=== PATIENT | male | born 1985 | race Caucasian/White ===

== ENCOUNTER 2019-09-13 09:50 | Inpatient (IN) | payer MEDICAID, OTHER ==
--- NOTE | 2019-09-13 10:38 | ED ---
Psych HPI - General Source: patient, police, EMS Mode of arrival: ambulatory <Opal Leo - Last Filed: 09/13/19 14:56> <Papa West - Last Filed: 09/13/19 15:10> - General Chief Complaint: Psychiatric Symptoms Stated Complaint: Mental Health Time Seen by Provider: 09/13/19 10:22 - History of Present Illness Initial Comments: 33-year-old male who states he has previous psychiatric history who is currently off all medications presenting for anxiety. Patient was brought in by state police were called to a [place] station stating patient was acting bizzare and paranoid. Patient states that he has been feeling paranoid he states his thoughts are racing. He states he voluntarily came to the emergency department is agreeable to evaluation and possible admission. Patient denies any suicidal or homicidal ideation. Patient denies any physical complaints. Upon arrival patient appears well no distress, very compliant. (Opal Leo) - Related Data Home Medications Medication Instructions Recorded Confirmed No Known Home Medications 09/13/19 09/13/19 Allergies Allergy/AdvReac Type Severity Reaction Status Date / Time No Known Allergies Allergy Verified 09/13/19 11:29 Review of Systems ROS Other: All systems not noted in ROS Statement are negative. <Opal Leo - Last Filed: 09/13/19 14:56> ROS Other: All systems not noted in ROS Statement are negative. <Papa West - Last Filed: 09/13/19 15:10> ROS Statement: Those systems with pertinent positive or pertinent negative responses have been documented in the HPI. Past Medical History Past Medical History: No Reported History History of Any Multi-Drug Resistant Organisms: None Reported Past Surgical History: No Surgical Hx Reported Past Psychological History: PTSD Smoking Status: Never smoker Past Alcohol Use History: Occasional Past Drug Use History: None Reported <Opal Leo - Last Filed: 09/13/19 14:56> General Exam Limitations: no limitations <Opal Leo - Last Filed: 09/13/19 14:56> - General Exam Comments Initial Comments: General: The patient is awake and alert, in no distress Eye: Pupils are equal, round and reactive to light, extra-ocular movements are intact. No nystagmus. There is normal conjunctiva bilaterally. No signs of icterus. Ears, nose, mouth and throat: There are moist mucous membranes and no oral lesions. Neck: There is no tenderness or JVD. Cardiovascular: There is a regular rate and rhythm. No murmur, rub or gallop is appreciated. Respiratory: Lungs are clear to auscultation, respirations are non-labored, breath sounds are equal. No wheezes, stridor, rales, or rhonchi. Gastrointestinal: Soft, non-distended, non-tender abdomen without masses or organomegaly noted. There is no rebound or guarding present. Musculoskeletal: Normal ROM, no tenderness. Strength 5/5. Sensation intact. Radial pulses equal bilaterally 2+. Neurological: A&O x 3. CN II-XII intact grossly, There are no obvious motor or sensory deficits. Coordination appears grossly intact. Speech is normal. Skin: Skin is warm and dry and no rashes or lesions are noted. Psychiatric: Cooperative, flat affect ([place]a Leo) Course <Opal Leo - Last Filed: 09/13/19 14:56> <Papa West - Last Filed: 09/13/19 15:10> Vital Signs 09/13/19 09:55 Temperature 98.9 F Pulse Rate 83 Respiratory 18 Rate Blood Pressure 135/88 O2 Sat by Pulse 97 Oximetry - Reevaluation(s) Reevaluation #1: Notified EPS personally that patient was medically cleared for EPS evaluation. 09/13/19 11:24 (Opal Leo) Reevaluation #2: Patient has episode of attempting to elope, medications ordered by certifying physician Dr. West 09/13/19 (Opal Leo) Reevaluation #3: 09/13/19 15:10 I did personally evaluate the patient he does demonstrate evidence of acute psychosis with paranoid features. He is uncooperative with respect to signing in. He was here in petition I did review the petition. I will fill out a clinical certification. Also the patient did attempt to climb through the ceiling in the bathroom adjacent to his room staff was able to stop his activity. (Papa West) Disposition Is patient prescribed a controlled substance at d/c from ED?: No Time of Disposition: 14:08 Decision to Admit Reason: Admit from EC Decision Date: 09/13/19 Decision Time: 14:08 <Opal Leo - Last Filed: 09/13/19 14:56> <Papa West - Last Filed: 09/13/19 15:10> Clinical Impression: Paranoid ideation, Anxiety, Acute psychosis Disposition: TRANSFER TO PSYCH HOSP/UNIT Condition: Stable Referrals: Nonstaff,Physician [REFERRING] - 1-2 days
[2019-09-13] MEDS ORDERED: ZIPRASIDONE 20 MG VIAL IM STA ×2 (14:23→19:24)
[2019-09-13] MEDS ORDERED: LORazepam 2 MG/ML INJ IM STA ×2 (14:23→19:23)
--- NOTE | 2019-09-13 15:21 | ED ---
Disposition Clinical Impression: Paranoid ideation, Anxiety, Acute psychosis Disposition: TRANSFER TO PSYCH HOSP/UNIT Condition: Stable Referrals: Nonstaff,Physician [REFERRING] - 1-2 days Procedures - Restraint - Face to Face Restraint Occurrence 1 Patient's Immediate Situation: Endangers self safety, Endangers others' safety Patient's Reaction to the Intervention: Cooperative, Fearful, Anxious, Bizarre, Suspicious, Combative Patient's Medical & Behavioral Condition: Awake, Alert, Anxious, Agitated, Paranoid, Flight of ideas, Bizarre behavior Need to Continue or Terminate Restraint or Seclusion: Continue Face to Face Eval of Restraint Date: 09/13/19 Face to Face Eval of Restraint Time: 15:15
[2019-09-13 19:09] LABS: Basophils # (A) 0.1 k/uL (0-0.2); Basophils % (A) 1 %; Eosinophils # (A) 0.1 k/uL (0-0.7); Eosinophils % (A) 1 %; HCT 45.4 % (39.0-53.0); HGB 16.3 gm/dL (13.0-17.5); Lymphocytes # (A) 2.9 k/uL (1.0-4.8); Lymphocytes % (A) 26 %; MCH 28.8 pg (25.0-35.0); Mean Platelet Volume 8.5; Monocytes # (A) 0.9 k/uL (0-1.0); Monocytes % (A) 8 %; Neutrophils # (A) 7.2 k/uL (1.3-7.7); Neutrophils % (A) 63 %; Platelet Count 169 k/uL (150-450); RBC 5.67 m/uL (4.30-5.90); RDW 13.3 % (11.5-15.5); WBC 11.5 k/uL (3.8-10.6)
[2019-09-13] MEDS ORDERED: diphenhydrAMINE 50 MG/ML 1 ML VIAL IM STA (19:24)
[2019-09-13 19:25] LABS: ALT 10 U/L (4-49); AST 22 U/L (17-59); African American GFR (CKD) >90 (>60 ml/min/1.73 sqM); Albumin 4.9 g/dL (3.5-5.0); Alkaline Phosphatase 84 U/L (38-126); Anion Gap 10 mmol/L; Blood Urea Nitrogen 15 mg/dL (9-20); Calcium 9.7 mg/dL (8.4-10.2); Carbon Dioxide 23 mmol/L (22-30); Chloride 108 mmol/L (98-107); Glucose 104 mg/dL (74-99); Non-African American GFR(CKD) >90 (>60 ml/min/1.73 sqM); Potassium 3.9 mmol/L (3.5-5.1); Sodium 141 mmol/L (137-145); Total Bilirubin 1.2 mg/dL (0.2-1.3); Total Protein 7.6 g/dL (6.3-8.2)
[2019-09-13] MEDS ORDERED: diphenhydrAMINE 50 MG CAP PO STA (19:28)
[2019-09-13] MEDS ORDERED: LORazepam 1 MG TAB PO STA (19:30)
[2019-09-14 02:50] LABS: Appearance,Urine Clear (Clear); Bilirubin,Urine Negative (Negative); Blood,Urine Negative (Negative); Color,Urine Yellow; Glucose,Urine (UA) Negative (Negative); Ketones,Urine 3+ (Negative); Leukocyte Esterase,Urine Negative (Negative); Mucus,Urine Occasional /hpf; Nitrite,Urine Negative (Negative); PH, Urine 6.5 (5.0-8.0); Protein,Urine 1+ (Negative); RBC,Urine 1 /hpf (0-5); WBC,Urine <1 /hpf (0-5)
[2019-09-14 03:01] LABS: Amphetamine Screen,Urine Not Detected (NotDetected); Barbiturate Screen,Urine Not Detected (NotDetected); Benzodiazepines Screen,Urine Detected (NotDetected); Cocaine Screen,Urine Not Detected (NotDetected); Methadone Screen, Urine Not Detected (NotDetected); Opiate Screen,Urine Not Detected (NotDetected); Oxycodone Screen, Urine Not Detected (NotDetected); Phencyclidine Screen,Urine Not Detected (NotDetected); Tricyclic Antidepressant,Urine Not Detected (NotDetected); Urn Cannabinoid Scrn Not Detected (NotDetected)
[2019-09-14] MEDS ORDERED: MAGNESIUM HYDROXIDE 2,400 MG/10 ML CUP PO PRN (09:00)
[2019-09-14] MEDS ORDERED: LORazepam 1 MG TAB PO PRN (09:00)
[2019-09-14] MEDS ORDERED: MAG HYDROX/AL HYDROX/SIMETH 30 ML CUP PO PRN (09:00)
[2019-09-14] MEDS ORDERED: ACETAMINOPHEN TAB 325 MG TAB PO PRN (09:00)
[2019-09-14] MEDS ORDERED: ZIPRASIDONE 20 MG VIAL IM PRN (09:00)
[2019-09-14] MEDS ORDERED: LORazepam 2 MG/ML INJ IM PRN (09:05)
[2019-09-14] MEDS ORDERED: traZODone HCL 50 MG TAB PO PRN (12:24)
[2019-09-14] MEDS: ARIPiprazole 5 MG TAB PO SCH (12:49)
--- NOTE | 2019-09-14 12:56 | P.HP ---
Psychiatric H&P - . H&P Date: 09/14/19 History & Physical: Allergies Allergy/AdvReac Type Severity Reaction Status Date / Time No Known Allergies Allergy Verified 09/14/19 09:14 Vital Signs Temp 97.7 F 09/14/19 09:32 Pulse 98 09/14/19 09:32 Resp 20 09/14/19 09:32 BP 122/91 09/14/19 09:32 Pulse Ox 98 09/14/19 09:32 Intake & Output 09/13/19 09/14/19 09/14/19 18:59 06:59 18:59 Weight 74.843 kg 68.974 kg Laboratory Last Values WBC 11.5 k/uL (3.8-10.6) H 09/13/19 18:59 RBC 5.67 m/uL (4.30-5.90) 09/13/19 18:59 Hgb 16.3 gm/dL (13.0-17.5) 09/13/19 18:59 Hct 45.4 % (39.0-53.0) 09/13/19 18:59 MCV 80.0 fL (80.0-100.0) 09/13/19 18:59 MCH 28.8 pg (25.0-35.0) 09/13/19 18:59 MCHC 36.0 g/dL (31.0-37.0) 09/13/19 18:59 RDW 13.3 % (11.5-15.5) 09/13/19 18:59 Plt Count 169 k/uL (150-450) 09/13/19 18:59 Neutrophils % 63 % 09/13/19 18:59 Lymphocytes % 26 % 09/13/19 18:59 Monocytes % 8 % 09/13/19 18:59 Eosinophils % 1 % 09/13/19 18:59 Basophils % 1 % 09/13/19 18:59 Neutrophils # 7.2 k/uL (1.3-7.7) 09/13/19 18:59 Lymphocytes # 2.9 k/uL (1.0-4.8) 09/13/19 18:59 Monocytes # 0.9 k/uL (0-1.0) 09/13/19 18:59 Eosinophils # 0.1 k/uL (0-0.7) 09/13/19 18:59 Basophils # 0.1 k/uL (0-0.2) 09/13/19 18:59 Sodium 141 mmol/L (137-145) 09/13/19 18:59 Potassium 3.9 mmol/L (3.5-5.1) 09/13/19 18:59 Chloride 108 mmol/L (98-107) H 09/13/19 18:59 Carbon Dioxide 23 mmol/L (22-30) 09/13/19 18:59 Anion Gap 10 mmol/L 09/13/19 18:59 BUN 15 mg/dL (9-20) 09/13/19 18:59 Creatinine 0.89 mg/dL (0.66-1.25) 09/13/19 18:59 Est GFR (CKD-EPI)AfAm >90 (>60 ml/min/1.73 sqM) 09/13/19 18:59 Est GFR (CKD-EPI)NonAf >90 (>60 ml/min/1.73 sqM) 09/13/19 18:59 Glucose 104 mg/dL (74-99) H 09/13/19 18:59 Calcium 9.7 mg/dL (8.4-10.2) 09/13/19 18:59 Total Bilirubin 1.2 mg/dL (0.2-1.3) 09/13/19 18:59 AST 22 U/L (17-59) 09/13/19 18:59 ALT 10 U/L (4-49) 09/13/19 18:59 Alkaline Phosphatase 84 U/L (38-126) 09/13/19 18:59 Total Protein 7.6 g/dL (6.3-8.2) 09/13/19 18:59 Albumin 4.9 g/dL (3.5-5.0) 09/13/19 18:59 Urine Color Yellow 09/14/19 02:45 Urine Appearance Clear (Clear) 09/14/19 02:45 Urine pH 6.5 (5.0-8.0) 09/14/19 02:45 Ur Specific Tilly 1.030 (1.001-1.035) 09/14/19 02:45 Urine Protein 1+ (Negative) H 09/14/19 02:45 Urine Glucose (UA) Negative (Negative) 09/14/19 02:45 Urine Ketones 3+ (Negative) H 09/14/19 02:45 Urine Blood Negative (Negative) 09/14/19 02:45 Urine Nitrite Negative (Negative) 09/14/19 02:45 Urine Bilirubin Negative (Negative) 09/14/19 02:45 Urine Urobilinogen 2.0 mg/dL (<2.0) 09/14/19 02:45 Ur Leukocyte Esterase Negative (Negative) 09/14/19 02:45 Urine RBC 1 /hpf (0-5) 09/14/19 02:45 Urine WBC <1 /hpf (0-5) 09/14/19 02:45 Urine Mucus Occasional /hpf (None) H 09/14/19 02:45 Urine Opiates Screen Not Detected (NotDetected) 09/14/19 02:45 Ur Oxycodone Screen Not Detected (NotDetected) 09/14/19 02:45 Urine Methadone Screen Not Detected (NotDetected) 09/14/19 02:45 Ur Propoxyphene Screen Not Detected (NotDetected) 09/14/19 02:45 Ur Barbiturates Screen Not Detected (NotDetected) 09/14/19 02:45 U Tricyclic Antidepress Not Detected (NotDetected) 09/14/19 02:45 Ur Phencyclidine Scrn Not Detected (NotDetected) 09/14/19 02:45 Ur Amphetamines Screen Not Detected (NotDetected) 09/14/19 02:45 U Methamphetamines Scrn Not Detected (NotDetected) 09/14/19 02:45 U Benzodiazepines Scrn Detected (NotDetected) H 09/14/19 02:45 Urine Cocaine Screen Not Detected (NotDetected) 09/14/19 02:45 U Marijuana (THC) Screen Not Detected (NotDetected) 09/14/19 02:45 09/14/19 12:48 IDENTIFYING DATA: Patient is a 33-year-old male who currently lives with his parents in a house is unemployed and does not have any kids and is single. HPI: Patient presented to the hospital yesterday accompanied by police after patient was allegedly picked up at a gas station as he was acting bizarre and paranoid. Patient endorsed having racing thoughts in the ER and claimed that he stopped taking his medications several months ago and was reporting significant anxiety. Patient apparently tried to escape out of the ER and try to climb through ceiling tiles. Patient's UDS is positive for benzodiazepines. Patient did receive prn medications while he was in the ER before being transferred to the mental health unit. Patient is on a petition and certification. Patient appeared to be anxious and suspicious/paranoid with global technical writer when he was initially approached. Patient asked that global technical writer close the door and asked several times if he is going to be okay on the unit and no is going to hurt him. Patient endorsed scared of "the whole world" and spoke about riots and "hatefulness" around him. He was fairly bizarre during the interview. He endorsed anxiety and states that it's been tough being around other people. He states that his mood is fine. He states that he's been dealing with anxiety since his early 20s. He claims that he has had poor sleep approximately 2-3 hours a night which started since he is moved to [place] from [place]. He denied any other recreational drug use. Patient denies any suicidal or homicidal ideations intent or plan. At this time patient denies any auditory or visual hallucinations. PAST PSYCHIATRIC HISTORY: Patient states that he has a history of anxiety/PTSD. Patient states that he was previously on psychiatric medications however did not know the name. He did recall being on lithium in the past. He states that he was previously hospitalized in a psychiatric hospital in [place] earlier this year. He states that he previously was following up with a psychiatrist in [place] however moved to [place] in March and has not seen a psychiatrist since then. Patient denies any history of suicide attempts in the past. PMH:denies ALLERGIES: as per EMR CHEMICAL DEPENDENCY HISTORY: as per HPI FAMILY PSYCHIATRIC/SUBSTANCE USE HISTORY: denies SOCIAL HISTORY: Patient was born and raised in [facility] [place] He claims that he moved down to [place] for a brief period of time and recently moved back to [place] in March 2019. He states that he completed high school. He denies having any kids is single and is unemployed and lives with his parents and house. He denied any legal problems or history. MENTAL STATUS EXAM: General Appearance: Patient appears to be stated age is alert, appears to be anxious yet attempts to cooperate. Patient is significantly paranoid/suspicious of others.. Patient appears to have poor hygiene and grooming. Behavior: Patient is seated without any agitated behavior. Paranoid/suspicious. Speech: Patient's speech is fluent and nonpressured. Mood/Affect: Patient reports their mood is "OK" and admits to anxiety, affect is congruent and appears to be anxious. Suicidality/Homicidality: Patient denies having any homicidal ideation intent or plan. Denies any suicidal ideations intent or plan Perceptions: Patient denies any visual hallucinations and denies any auditory hallucinations Though content/process: Suspicious/paranoid, ILlogical at times. [place]. Memory and concentration: AOX3, grossly intact for the purposes of this session. Can spell "WORLD" backwards Judgment and insight: poor STRENGTHS/WEAKNESSES: strength is that patient is resilient. Weakness is that patient has poor judgment INTELLECT: average IMPRESSIONS: Psychosis unspecified Generalized anxiety disorder PLAN: -Patient is admitted under involuntary status to MHU for stabilization of psychiatric symptoms and safety. Patient signed medication consent and is placed in patient's chart. A second certification was completed and along with petition will be filed for court. -Medications : Will start patient on Abilify 5 mg daily for mood stabilization/psychosis, we'll also start trazodone 50 mg daily at bedtime when necessary for insomnia/mood. -Ativan and Geodon PRN for agitation/aggression -Patient was informed of the risks, benefits and side effects of the medication and patient verbally consented to taking the medications. Patient signed med consent form and was placed in chart. -Internal Medicine consult to perform medical evaluation and physical. -NRT - not needed as patient does not smoke. -SW on board for discharge planning. Encourage patient to participate in groups to work on coping skills. 09/14/19 12:55
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
[2019-09-15] MEDS: ARIPiprazole 5 MG TAB PO SCH (08:59)
--- NOTE | 2019-09-15 11:20 | P.PN ---
Progress Note - Text Progress Note Date: 09/15/19 Interval History: Patient was seen wandering the hallways and was directable and agreeable to sp roulak with signwriter in the office. patient appeared to be calmer today and appeared to be less anxious and his affect. Patient claims that he feels the Abilify is helping with his paranoia and was initially endorsing feeling safe however later on in conversation patient asked signwriter "I'm going to live right?" And also asked if he can be transferred to a long-term psychiatric hospital. Patient states that his mood is gradually improving. He states that he slept well last night and has been going to groups. At this time patient denies any suicidal or homical ideations, intent or plan. Patient denies any auditory, visual hallucinations. Patient denies any side effects from the medications and has been compliant with meds. Mental Status Exam: General Appearance: Patient appears to be stated age is alert, appears to be anxious yet attempts to cooperate. improvement in paranoia. Patient appears to have poor hygiene and grooming. Behavior: Patient is seated without any agitated behavior. less Paranoid/suspicious. Speech: Patient's speech is fluent and nonpressured. Mood/Affect: Patient reports their mood is "Okay" and admits improvement in his anxiety, affect is congruent Suicidality/Homicidality: Patient denies having any homicidal ideation intent or plan. Denies any suicidal ideations intent or plan Perceptions: Patient denies any visual hallucinations and denies any auditory h allucinations Though content/process: Suspicious/paranoid, ILlogical at times. [place]. Memory and concentration: AOX3, grossly intact for the purposes of this session. Can spell "WORLD" backwards Judgment and insight: poor, mildly improving. Assessment Psychosis unspecified Generalized anxiety disorder Plan: -Patient continues to meet criteria for inpatient psychiatric admission for symptom stabilization and safety. Patient has signed adult voluntary form and medication consent and was placed in patient's chart. -Medications: increased Abilify to 7.5 mg daily for mood stabilization/psycho sis, continue with trazodone 50 mg daily at bedtime when necessary for insomnia/mood. -When necessary Ativan and Geodon for agitation/aggression. -NRT - not needed as patient does not smoke. -SW on board for discharge planning. Encouraged the patient to participate in milieu. likely discharge in 2-3 days.
[2019-09-15 13:27] VITALS: BMI 21.8
[2019-09-16 08:17] VITALS: BP 129/79; PULSE 103; RESP 20
[2019-09-16] MEDS ORDERED: ARIPiprazole 5 MG TAB PO SCH (09:00)
--- NOTE | 2019-09-16 09:47 | P.PN ---
Progress Note - Text Progress Note Date: 09/16/19 Interval History: Patient was seen laying down in his bed this morning and was directable and ag reeable to speak with filing writer in the office. patient appeared to be calmer today and appeared to be less anxious. Patient claims that the medication has been helping with his anxiety and he claims to feel less paranoid today however Patient continues to ask filing writer "is there a place I can go like this record can be safe". and his affect. He states that he went to 1 group yesterday and enjoyed it and states that he'll try to go to more groups today. He claims that he spoke with his parents yesterday as they came to visit him on the unit and he states that it went well. He states that he was able to sleep well last night and claimed that his mood and anxiety have been improving significantly. At this time patient denies any suicidal or homical ideations, intent or plan. Patient denies any auditory, visual hallucinations. Patient denies any side effects from the medications and has been compliant with meds. Mental Status Exam: General Appearance: Patient appears to be stated age is alert, appears less anxious today and attempts to cooperate. Patient appears to have improving hygiene and grooming. Behavior: Patient is seated without any agitated behavior. less Paranoid/suspicious today. Speech: Patient's speech is fluent and nonpressured. Mood/Affect: Patient reports their mood is "good" and admits improvement in his anxiety, affect is congruent Suicidality/Homicidality: Patient denies having any homicidal ideation intent or plan. Denies any suicidal ideations intent or plan Perceptions: Patient denies any visual hallucinations and denies any auditory hallucinations Though content/process: Suspicious/paranoid which has been improving, logical and goal oriented. [place]. Memory and concentration: AOX3, grossly intact for the purposes of this session. Can spell "WORLD" backwards Judgment and insight: mildly improving. Assessment Psychosis unspecified Generalized anxiety disorder Plan: -Patient continues to meet criteria for inpatient psychiatric admission for symptom stabilization and safety. Awaiting for patient's deferral scheduled for today and full court hearing scheduled on 09/22/2019. -Medications: Increased Abilify to 10 mg daily for mood stabilization/psychosis, continue with trazodone 50 mg daily at bedtime when necessary for insomnia/mood. -When necessary Ativan and Geodon for agitation/aggression. -NRT - not needed as patient does not smoke. -SW on board for discharge planning. Encouraged the patient to participate in milieu. casino worker to make contact with patient's parents to assess for baseline and likely prepare for discharge tomorrow or early next week. Awaiting patient's deferral.
[2019-09-16 19:20] VITALS: TEMP 98.6
[2019-09-17] MEDS ORDERED: ARIPiprazole 10 MG TAB PO SCH (09:00)
--- NOTE | 2019-09-17 09:33 | P.DS ---
Providers Date of admission: 09/14/19 07:59 Expected date of discharge: 09/17/19 Attending physician: Andrew Seaman MD Consults: 09/14/19 09:00 Consult Physician Routine Consulting Provider: Tiffani Hoover Consult Reason/Comments: H & P and medical management Do you want consulting provider notified?: Yes Primary care physician: Jr Hawkins - Discharge Diagnosis(es) (1) Unspecified psychosis Current Visit: Yes Status: Acute Priority: High (2) Generalized anxiety disorder Current Visit: Yes Status: Acute Priority: Medium Hospital Course: Admission HPI: Patient is a 33-year-old male who currently lives with his parents in a house is unemployed and does not have any kids and is single. Patient presented to the hospital yesterday accompanied by police after patient was allegedly picked up at a gas station as he was acting bizarre and paranoid. Patient endorsed having racing thoughts in the ER and claimed that he stopped taking his medications several months ago and was reporting significant anxiety. Patient apparently tried to escape out of the ER and try to climb through ceiling tiles. Patient's UDS is positive for benzodiazepines. Patient did receive prn medications while he was in the ER before being transferred to the mental health unit. Patient is on a petition and certification. Patient appeared to be anxious and suspicious/paranoid with board writer when he was initially approached. Patient asked that board writer close the door and asked several times if he is going to be okay on the unit and no is going to hurt him. Patient en dorsed scared of "the whole world" and spoke about riots and "hatefulness" around him. He was fairly bizarre during the interview. He endorsed anxiety and states that it's been tough being around other people. He states that his mood is fine. He states that he's been dealing with anxiety since his early 20s. He claims that he has had poor sleep approximately 2-3 hours a night which started since he is moved to [place] from [place]. He denied any other recreational drug use. Patient denies any suicidal or homicidal ideations intent or plan. At this time patient denies any auditory or visual hallucinations. Hospital course: Upon admission to the unit patient was initially anxious, paranoid and bizarre. Patient was brought in on a petition and certificate and a second certificate was filed with the court and patient ended up deferring court and agreeable to continue on with psychiatric treatment on the unit. Patient was initially fairly paranoid and isolative however with treatment and over time patient got along well with other patients on the unit and followed unit protocol. Patient was compliant with the medications and denied any side effects throughout hospital course. Patient was started on Abilify and titrated up to a dose of 10 mg daily by mouth for mood stabilization/psychosis. Patient spoke of his stressors and engaged in therapy both group and individual. Patient was also seen by medical team for history and physical exam. Throughout the course of the hospitalization patient gradually improved with regards to paranoia/psychosis and anxiety, sleep and became future oriented with improved insight and judgment. On the day of discharge patient denied any suicidal or homicidal ideations intent or plan denied any auditory or visual hallucinations. Patient endorsed wanting to live for his future and his family. The patient denied any access to guns or weapons. Patient denied any paranoia and did not endorse any delusions. Patient does not have a significant history of substance abuse however was counseled on abstaining from all substances including alcohol and marijuana. Patient was also counseled on the medications and need for regular compliance and was encouraged to follow-up with their outpatient appointment for mental health and also for primary care. Prior to discharge a family meeting will be arranged by social security benefits interviewer to answer any questions and ensure safety upon discharge. Mental status exam: General Appearance: Patient appears to be tall and thin, stated age is alert, pleasant, and cooperative. Patient is in no acute distress and has fair hygiene and grooming Behavior: Patient is calmly seated without any agitated behavior. Speech: Patient's speech is fluent and nonpressured. Mood/Affect: Patient reports their mood is "much better", affect is congruent and euthymic. Suicidality/Homicidality: Patient denies having any suicidal or homicidal ideation intent or plan. Perceptions: Patient denies any auditory or visual hallucinations. Though content/process: There is no evidence of any delusional thought content and thought process is linear and goal-directed. more future oriented Memory and concentration: AOX3, grossly intact for the purposes of this session. Can spell "WORLD" backwards correctly. Judgment and insight: Improved with guarded prognosis Impression: Psychosis unspecified Generalized anxiety disorder Plan: -Continue with discharge today as patient has improved and stabilized psychiatrically and is not currently an imminent threat to himself and/or others. -Continue medications: Abilify by mouth 10 mg daily for mood stabilization/psychosis. -Patient was counseled on the need for medication compliance and appropriate follow-up at mental health and also primary care for medical issues. Patient verbalized understanding and agreed. -Social work to arrange for and conduct family meeting to ensure safety upon discharge and answer any questions/concerns. Social work also to arrange for patients follow up appointments for psychiatric care along with follow up with primary care provider. -Patient counseled on abstaining from recreational drugs and marijuana and alcohol. Was informed/educated on the adverse effects on their physical and mental health. Patient verbally agreed and understood. -Patient was instructed to return to the hospital or seek immediate medical care if their psychiatric or medical symptoms do worsen or reoccur. Allergies Allergy/AdvReac Type Severity Reaction Status Date / Time No Known Allergies Allergy Verified 09/14/19 09:14 Laboratory Results WBC 11.5 k/uL (3.8-10.6) H 09/13/19 18:59 RBC 5.67 m/uL (4.30-5.90) 09/13/19 18:59 Hgb 16.3 gm/dL (13.0-17.5) 09/13/19 18:59 Hct 45.4 % (39.0-53.0) 09/13/19 18:59 MCV 80.0 fL (80.0-100.0) 09/13/19 18:59 MCH 28.8 pg (25.0-35.0) 09/13/19 18:59 MCHC 36.0 g/dL (31.0-37.0) 09/13/19 18:59 RDW 13.3 % (11.5-15.5) 09/13/19 18:59 Plt Count 169 k/uL (150-450) 09/13/19 18:59 Neutrophils % 63 % 09/13/19 18:59 Lymphocytes % 26 % 09/13/19 18:59 Monocytes % 8 % 09/13/19 18:59 Eosinophils % 1 % 09/13/19 18:59 Basophils % 1 % 09/13/19 18:59 Neutrophils # 7.2 k/uL (1.3-7.7) 09/13/19 18:59 Lymphocytes # 2.9 k/uL (1.0-4.8) 09/13/19 18:59 Monocytes # 0.9 k/uL (0-1.0) 09/13/19 18:59 Eosinophils # 0.1 k/uL (0-0.7) 09/13/19 18:59 Basophils # 0.1 k/uL (0-0.2) 09/13/19 18:59 Sodium 141 mmol/L (137-145) 09/13/19 18:59 Potassium 3.9 mmol/L (3.5-5.1) 09/13/19 18:59 Chloride 108 mmol/L (98-107) H 09/13/19 18:59 Carbon Dioxide 23 mmol/L (22-30) 09/13/19 18:59 Anion Gap 10 mmol/L 09/13/19 18:59 BUN 15 mg/dL (9-20) 09/13/19 18:59 Creatinine 0.89 mg/dL (0.66-1.25) 09/13/19 18:59 Est GFR (CKD-EPI)AfAm >90 (>60 ml/min/1.73 sqM) 09/13/19 18:59 Est GFR (CKD-EPI)NonAf >90 (>60 ml/min/1.73 sqM) 09/13/19 18:59 Glucose 104 mg/dL (74-99) H 09/13/19 18:59 Calcium 9.7 mg/dL (8.4-10.2) 09/13/19 18:59 Total Bilirubin 1.2 mg/dL (0.2-1.3) 09/13/19 18:59 AST 22 U/L (17-59) 09/13/19 18:59 ALT 10 U/L (4-49) 09/13/19 18:59 Alkaline Phosphatase 84 U/L (38-126) 09/13/19 18:59 Total Protein 7.6 g/dL (6.3-8.2) 09/13/19 18:59 Albumin 4.9 g/dL (3.5-5.0) 09/13/19 18:59 TSH 1.190 mIU/L (0.465-4.680) 09/13/19 18:59 Urine Color Yellow 09/14/19 02:45 Urine Appearance Clear (Clear) 09/14/19 02:45 Urine pH 6.5 (5.0-8.0) 09/14/19 02:45 Ur Specific Lynch 1.030 (1.001-1.035) 09/14/19 02:45 Urine Protein 1+ (Negative) H 09/14/19 02:45 Urine Glucose (UA) Negative (Negative) 09/14/19 02:45 Urine Ketones 3+ (Negative) H 09/14/19 02:45 Urine Blood Negative (Negative) 09/14/19 02:45 Urine Nitrite Negative (Negative) 09/14/19 02:45 Urine Bilirubin Negative (Negative) 09/14/19 02:45 Urine Urobilinogen 2.0 mg/dL (<2.0) 09/14/19 02:45 Ur Leukocyte Esterase Negative (Negative) 09/14/19 02:45 Urine RBC 1 /hpf (0-5) 09/14/19 02:45 Urine WBC <1 /hpf (0-5) 09/14/19 02:45 Urine Mucus Occasional /hpf (None) H 09/14/19 02:45 Urine Opiates Screen Not Detected (NotDetected) 09/14/19 02:45 Ur Oxycodone Screen Not Detected (NotDetected) 09/14/19 02:45 Urine Methadone Screen Not Detected (NotDetected) 09/14/19 02:45 Ur Propoxyphene Screen Not Detected (NotDetected) 09/14/19 02:45 Ur Barbiturates Screen Not Detected (NotDetected) 09/14/19 02:45 U Tricyclic Antidepress Not Detected (NotDetected) 09/14/19 02:45 Ur Phencyclidine Scrn Not Detected (NotDetected) 09/14/19 02:45 Ur Amphetamines Screen Not Detected (NotDetected) 09/14/19 02:45 U Methamphetamines Scrn Not Detected (NotDetected) 09/14/19 02:45 U Benzodiazepines Scrn Detected (NotDetected) H 09/14/19 02:45 Urine Cocaine Screen Not Detected (NotDetected) 09/14/19 02:45 U Marijuana (THC) Screen Not Detected (NotDetected) 09/14/19 02:45 Coronavirus (PCR) Not Detected (Not Detected) 09/14/19 02:45 Vital Signs Temp 98.6 F 09/16/19 19:20 Pulse 103 H 09/16/19 08:15 Resp 20 09/16/19 08:15 BP 129/79 09/16/19 08:15 Pulse Ox 97 09/16/19 08:15 Patient Condition at Discharge: Stable Plan - Discharge Summary Discharge Rx Participant: No New Discharge Prescriptions: New ARIPiprazole [Abilify] 10 mg PO DAILY 30 Days tab Acetaminophen Tab [Tylenol] 650 mg PO Q4HR PRN tab PRN Reason: Pain/Discomfort Discharge Medication List ARIPiprazole [Abilify] 10 mg PO DAILY 30 Days tab 09/17/19 [Rx] Acetaminophen Tab [Tylenol] 650 mg PO Q4HR PRN tab 09/17/19 [Rx] Follow up Appointment(s)/Referral(s): Nonstaff,Physician [REFERRING] - 1-2 days Activity/Diet/Wound Care/Special Instructions: Activity and diet as tolerated. Avoid the use of street drugs and alcohol. Take all medications as prescribed. When you are in need of refills on your medications please contact your medical provider and/or outpatient psychiatrist to have this done. Please go to scheduled outpatient appointment for aftercare treatment. If symptoms return or become worse, call the crisis line at and/or go to the nearest emergency room for evaluation Discharge Disposition: HOME SELF-CARE
== END 2019-09-17 12:40 | disposition home or self-care (01) | DRG 885 ==
LOC: EC 09:50 → 3MHU 09-14 07:59 → UNDODISIN 09-14 09:52 → 3MHU 09-17 11:36
PROVIDERS: ADMIT Psychiatry & Neurology Psychiatry; ATTEND Psychiatry & Neurology Psychiatry
DX: F23 Brief psychotic disorder (principal); F60.0 Paranoid personality disorder; Z11.59 Encounter for screening for other viral diseases; F41.1 Generalized anxiety disorder; F43.10 Post-traumatic stress disorder, unspecified; G47.00 Insomnia, unspecified; Z56.0 Unemployment, unspecified
CPT/HCPCS: 36415; 80053; 80306; 81001; 82075; 84443; 85025; 96372; 99285

== ENCOUNTER 2019-09-25 00:14 | Emergency (ER) | payer OTHER ==
[2019-09-25 00:43] VITALS: BP 133/85; PULSE 116; RESP 18; TEMP 98.2
[2019-09-25] MEDS ORDERED: LORazepam 1 MG TAB PO STA (00:56)
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
== END 2019-09-25 02:03 | disposition home or self-care (01) ==
LOC: EC 00:14
DX: F41.0 Panic disorder [episodic paroxysmal anxiety] (principal); F41.9 Anxiety disorder, unspecified; F22 Delusional disorders
CPT/HCPCS: 99283

== ENCOUNTER 2019-09-25 03:17 | Inpatient (IN) | payer MEDICAID, OTHER ==
--- NOTE | 2019-09-25 03:49 | ED ---
Psych HPI - General Chief Complaint: Psychiatric Symptoms Stated Complaint: Mental Health Time Seen by Provider: 09/25/19 03:48 Source: patient, RN notes reviewed, old records reviewed Mode of arrival: ambulatory Limitations: no limitations - History of Present Illness Initial Comments: This is a 33-year-old male with known history of psychiatric illness coming in for psychiatric evaluation. Patient was seen earlier in the day decided not to stay in the hospital but then but again back with family for psychiatric admission and placement. Patient is racing thoughts paranoia and anxiety MD Complaint: suicidal ideation, feels depressed -: unknown Associated Psychiatric Symptoms: depression, suicidal ideation, racing thoughts History of same: Yes Quality: constant Improves With: none Worsens With: none Context: not taking psychiatric medications Associated Symptoms: denies other symptoms Treatments Prior to Arrival: placed on mental health hold If Self Harm: admits thoughts of self harm - Related Data Previous Rx's Medication Instructions Recorded ARIPiprazole [Abilify] 10 mg PO DAILY 30 Days tab 09/17/19 Acetaminophen Tab [Tylenol] 650 mg PO Q4HR PRN tab 09/17/19 LORazepam [Ativan] 0.5 mg PO BID 3 Days #6 tab 09/25/19 Allergies Allergy/AdvReac Type Severity Reaction Status Date / Time No Known Allergies Allergy Verified 09/25/19 03:33 Review of Systems ROS Statement: Those systems with pertinent positive or pertinent negative responses have been documented in the HPI. ROS Other: All systems not noted in ROS Statement are negative. Past Medical History Past Medical History: No Reported History History of Any Multi-Drug Resistant Organisms: None Reported Past Surgical History: No Surgical Hx Reported Past Anesthesia/Blood Transfusion Reactions: No Reported Reaction Past Psychological History: Anxiety, PTSD Smoking Status: Never smoker Past Alcohol Use History: None Reported Past Drug Use History: None Reported General Exam Limitations: no limitations General appearance: alert, in no apparent distress Head exam: Present: atraumatic, normocephalic, normal inspection Eye exam: Present: normal appearance, PERRL, EOMI. Absent: scleral icterus, conjunctival injection, periorbital swelling ENT exam: Present: normal exam, mucous membranes moist Neck exam: Present: normal inspection. Absent: tenderness, meningismus, lymphadenopathy Respiratory exam: Present: normal lung sounds bilaterally. Absent: respiratory distress, wheezes, rales, rhonchi, stridor Cardiovascular Exam: Present: regular rate, normal rhythm, normal heart sounds. Absent: systolic murmur, diastolic murmur, rubs, gallop, clicks GI/Abdominal exam: Present: soft, normal bowel sounds. Absent: distended, tenderness, guarding, rebound, rigid Extremities exam: Present: normal inspection, full ROM, normal capillary refill. Absent: tenderness, pedal edema, joint swelling, calf tenderness Back exam: Present: normal inspection Neurological exam: Present: alert, oriented X3, CN II-XII intact Psychiatric exam: Present: normal affect, normal mood Skin exam: Present: warm, dry, intact, normal color. Absent: rash Course Vital Signs 09/25/19 03:31 Temperature 98 F Pulse Rate 99 Respiratory 18 Rate Blood Pressure 118/78 O2 Sat by Pulse 99 Oximetry - Reevaluation(s) Reevaluation #1: 09/25/19 04:08 medical records reviewed Reevaluation #2: 09/25/19 04:08 Medical clear for psychiatric evaluation Medical Decision Making - Medical Decision Making 33 male who was seen in however psychiatry patient will be admitted for psychiatric evaluation and treatment Disposition Clinical Impression: Acute psychosis, Unspecified psychosis Disposition: TRANSFER TO PSYCH HOSP/UNIT Condition: Fair Is patient prescribed a controlled substance at d/c from ED?: No
[2019-09-25] MEDS ORDERED: ACETAMINOPHEN TAB 325 MG TAB PO PRN (04:52)
[2019-09-25] MEDS ORDERED: ZIPRASIDONE 20 MG VIAL IM PRN (04:52)
[2019-09-25] MEDS ORDERED: LORazepam 1 MG TAB PO PRN (04:52)
[2019-09-25] MEDS ORDERED: MAG HYDROX/AL HYDROX/SIMETH 30 ML CUP PO PRN (04:52)
[2019-09-25] MEDS ORDERED: MAGNESIUM HYDROXIDE 2,400 MG/10 ML CUP PO PRN (04:52)
[2019-09-25] MEDS ORDERED: LORazepam 2 MG/ML INJ IM PRN (04:55)
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
[2019-09-25 08:01] LABS: Glucose,Whole Blood 128 mg/dL (75-99)
[2019-09-25 08:08] LABS: ALT 10 U/L (4-49); AST 18 U/L (17-59); African American GFR (CKD) >90 (>60 ml/min/1.73 sqM); Albumin 4.9 g/dL (3.5-5.0); Alkaline Phosphatase 72 U/L (38-126); Anion Gap 11 mmol/L; Bilirubin,Unconjugated 1.4 mg/dL (0.0-1.1); Blood Urea Nitrogen 19 mg/dL (9-20); Calcium 9.5 mg/dL (8.4-10.2); Carbon Dioxide 27 mmol/L (22-30); Chloride 102 mmol/L (98-107); Cholesterol 180 mg/dL (<200); Glucose 97 mg/dL (74-99); HDL Cholesterol 29 mg/dL (40-60); LDL Cholesterol,Calculated 132 mg/dL (0-99); Non-African American GFR(CKD) >90 (>60 ml/min/1.73 sqM); Potassium 3.8 mmol/L (3.5-5.1); Sodium 140 mmol/L (137-145); Total Bilirubin 1.4 mg/dL (0.2-1.3); Total Protein 7.3 g/dL (6.3-8.2); Triglycerides 95 mg/dL (<150)
[2019-09-25] MEDS: ARIPiprazole 10 MG TAB PO SCH (08:30)
[2019-09-25 08:50] LABS: Basophils # (A) 0.1 k/uL (0-0.2); Basophils % (A) 1 %; Eosinophils # (A) 0.1 k/uL (0-0.7); Eosinophils % (A) 1 %; HGB 16.1 gm/dL (13.0-17.5); Lymphocytes # (A) 3.1 k/uL (1.0-4.8); Lymphocytes % (A) 34 %; MCH 27.9 pg (25.0-35.0); MCHC 34.3 g/dL (31.0-37.0); MCV 81.4 fL (80.0-100.0); Mean Platelet Volume 9.2; Monocytes # (A) 0.9 k/uL (0-1.0); Monocytes % (A) 9 %; Neutrophils # (A) 4.9 k/uL (1.3-7.7); Neutrophils % (A) 53 %; Platelet Count 191 k/uL (150-450); RBC 5.78 m/uL (4.30-5.90); RDW 13.4 % (11.5-15.5); WBC 9.4 k/uL (3.8-10.6)
--- NOTE | 2019-09-25 10:15 | P.HP ---
Psychiatric H&P - . H&P Date: 09/25/19 History & Physical: IDENTIFYING DATA: A 33-year-old single male readmitted to the psychiatric unit voluntarily with complaints of increasing anxiety and paranoia. HISTORY OF PRESENT ILLNESS: Dr. Seaman discharged him on 09/17/2019 with diagnoses of unspecified psychosis and generalized anxiety disorder. His discharge medications included Abilify 10 mg daily. The patient stated that he became increasingly anxious when he returned to his parent's home. He talked about developing a belief that people were watching him and trying to "get him." He believed that people were hiding in the [place] around his parents home. He then spent 2 or 3 days at his grandmother's house believing that anxiety and paranoia was due to living at his parent's home. However the anxiety and paranoia continued and worsened to the point where she became afraid to eat or drink fluids. He developed a belief that both the water and food were poisoned. He alleged that he has not eaten and only drank "a little bit" of water since his discharge. He perseverated on "my thoughts" telling me that there is poison in the water and food. In the EC he was markedly anxious and paranoid. His anxiety did not resolve with Ativan and he would not leave the EC with his parents. He told the EPS nurse that he was afraid that his father being physical with him and talked about being afraid people coming out of the [place], breaking into his parent's home, and being him out. He believes these people were driven byCOVID, the loss of their jobs and having nothing to eat. He was tearful, tremulous and sitting in a semi- position. He described feelings depression but denied thoughts of or suicide. He described insomnia with difficulty falling asleep and staying asleep. He described persistent and uncontrolled anxiety as well as periods of increased anxiety. The periods of increased anxiety where sustained and disproportionate to that of a panic attack. He was obsessive and perseverative but denied compulsive behaviors or specific obsessional thoughts. He described ideas reference related to the [place] around his parent's house and he talked about having special messages from the [place] plates, bumper stickers and words on cars and trucks. He denied experiencing auditory, visual or olfactory hallucinations. He does not describe clear thought insertion, thought broadcasting or thought control. PAST PSYCHIATRIC HISTORY: This is his fifth or sixth hospitalization and the second to this facility. His first admitted to a psychiatric facility when he was 16 years old. He talked about having been hospitalized for 2-1/2 pounds psychiatric facility in [place] in 2019. He alleged that he is compliant with Abilify 10 mg daily. He is active with [facility]. PAST MEDICAL HISTORY: Medical hesitation appreciated. He denied history of major medical problems. ALLERGIES: NO KNOWN DRUG ALLERGIES SUBSTANCE USE HISTORY:. He denied history of substance use and substance use problems. FAMILY PSYCHIATRIC/SUBSTANCE USE HISTORY: Denies LEGAL HISTORY: Denies SOCIAL HISTORY: He was born and raised in [place] to an intact family. He graduated from high school. He has held intermittent unskilled jobs. He lived briefly in [place] in 2019. No back to [place] in March of this year. He has no income. s MENTAL STATUS EXAM: He presented as a thin and anxious appearing 33-year-old male with male pattern balding. He made eye contact and attended to interview. He had no prominent physical abnormalities. He had a distressed facial expression. He was alert and oriented to person, place and time. He showed no abnormality of psychomotor activity. He was not restless or agitated. He wrung his hands throughout the interview. His speech was spontaneous with normal rate and rhythm. His affect is anxious but not inappropriate or attempts. He denies suicidal ideation or wishes. No homicidal ideation. Expresses feelings of hopelessness and helplessness. He ruminated over anxiety and fears. He described ideas reference, paranoid ideation and delusions. His thinking was abstract and associations were coherent and logical. He denied hallucinations and did not appear to be responding to internal stimuli. Global impression of intellect is average. He is aware of his illness and need for treatment. STRENGTHS: Good physical health, supportive family, engagement with mental health services WEAKNESSES: Chronic and persistent mental illness and lack of employment, lack of income IMPRESSION: He is a 33-year-old male who has a history of a mental illness beginning in late adolescence with multiple psychiatric hospitalizations. We agree admitted him 10 days after discharge with complaints of increasing anxiety, paranoia and ideas reference. He developed clear paranoid delusional beliefs about his food and alleged that he was not eating and drinking because he believed that the food and water was poisoned. I suspect a primary psychotic illness and the anxiety is secondary to his psychotic symptoms. He should be treated inpatient basis with combination of psychopharmacology and multimodal therapy. PRINCIPLE DIAGNOSIS: Unspecified psychotic disorder, rule out schizophrenia, rule out schizoaffective disorder RECOMMENDATION: Admitted to the psychiatric unit. Safety precautions. pupil personnel worker completed initial psychosocial assessment done coordinate discharge and aftercare. Continue Abilify 10 mg daily and titrated according to clinical response and tolerance. Consider trial of an antidepressant for treatment of anxiety symptoms. Ativan 1 mg by mouth 3 times a day when necessary for anxiety or agitation and Geodon 20 mg IM twice a day when necessary for aggression or acute psychosis. Encourage participation in therapeutic groups and activities. Evaluate clinical status response to treatment daily basis. Allergies Allergy/AdvReac Type Severity Reaction Status Date / Time shelfish AdvReac Swelling Uncoded 09/25/19 05:48 Vital Signs Temp 98.0 F 09/25/19 05:17 Pulse 96 09/25/19 05:17 Resp 14 09/25/19 05:17 BP 114/83 09/25/19 05:17 Pulse Ox 99 09/25/19 05:17 Intake & Output 09/24/19 09/25/19 09/25/19 18:59 06:59 18:59 Weight 66.423 kg Laboratory Last Values WBC 9.4 k/uL (3.8-10.6) 09/25/19 07:18 RBC 5.78 m/uL (4.30-5.90) 09/25/19 07:18 Hgb 16.1 gm/dL (13.0-17.5) 09/25/19 07:18 Hct 47.0 % (39.0-53.0) 09/25/19 07:18 MCV 81.4 fL (80.0-100.0) 09/25/19 07:18 MCH 27.9 pg (25.0-35.0) 09/25/19 07:18 MCHC 34.3 g/dL (31.0-37.0) 09/25/19 07:18 RDW 13.4 % (11.5-15.5) 09/25/19 07:18 Plt Count 191 k/uL (150-450) 09/25/19 07:18 Neutrophils % 53 % 09/25/19 07:18 Lymphocytes % 34 % 09/25/19 07:18 Monocytes % 9 % 09/25/19 07:18 Eosinophils % 1 % 09/25/19 07:18 Basophils % 1 % 09/25/19 07:18 Neutrophils # 4.9 k/uL (1.3-7.7) 09/25/19 07:18 Lymphocytes # 3.1 k/uL (1.0-4.8) 09/25/19 07:18 Monocytes # 0.9 k/uL (0-1.0) 09/25/19 07:18 Eosinophils # 0.1 k/uL (0-0.7) 09/25/19 07:18 Basophils # 0.1 k/uL (0-0.2) 09/25/19 07:18 Sodium 140 mmol/L (137-145) 09/25/19 07:18 Potassium 3.8 mmol/L (3.5-5.1) 09/25/19 07:18 Chloride 102 mmol/L (98-107) 09/25/19 07:18 Carbon Dioxide 27 mmol/L (22-30) 09/25/19 07:18 Anion Gap 11 mmol/L 09/25/19 07:18 BUN 19 mg/dL (9-20) 09/25/19 07:18 Creatinine 0.92 mg/dL (0.66-1.25) 09/25/19 07:18 Est GFR (CKD-EPI)AfAm >90 (>60 ml/min/1.73 sqM) 09/25/19 07:18 Est GFR (CKD-EPI)NonAf >90 (>60 ml/min/1.73 sqM) 09/25/19 07:18 Glucose 97 mg/dL (74-99) 09/25/19 07:18 POC Glucose (mg/dL) 128 mg/dL (75-99) H 09/25/19 07:59 POC Glu Ip Architect ID Jalen Giraldo 09/25/19 07:59 Calcium 9.5 mg/dL (8.4-10.2) 09/25/19 07:18 Total Bilirubin 1.4 mg/dL (0.2-1.3) H 09/25/19 07:18 Conjugated Bilirubin 0.0 mg/dL (0.0-0.3) 09/25/19 07:18 Unconjugated Bilirubin 1.4 mg/dL (0.0-1.1) H 09/25/19 07:18 Delta Bilirubin 0.0 mg/dL (0.0-0.2) 09/25/19 07:18 AST 18 U/L (17-59) 09/25/19 07:18 ALT 10 U/L (4-49) 09/25/19 07:18 Alkaline Phosphatase 72 U/L (38-126) 09/25/19 07:18 Total Protein 7.3 g/dL (6.3-8.2) 09/25/19 07:18 Albumin 4.9 g/dL (3.5-5.0) 09/25/19 07:18 Triglycerides 95 mg/dL (<150) 09/25/19 07:18 Cholesterol 180 mg/dL (<200) 09/25/19 07:18 LDL Cholesterol, Calc 132 mg/dL (0-99) H 09/25/19 07:18 HDL Cholesterol 29 mg/dL (40-60) L 09/25/19 07:18 09/25/19 09:52
[2019-09-25 14:18] VITALS: BMI 20.9
[2019-09-25] MEDS ORDERED: ZIPRASIDONE 20 MG VIAL IM ONE (18:42)
[2019-09-26] MEDS: ARIPiprazole 10 MG TAB PO SCH (10:09)
--- NOTE | 2019-09-26 12:47 | P.PN ---
Progress Note - Text Progress Note Date: 09/26/19 Clinical Problems: Unspecified psychotic disorder, rule out schizophrenia, rule out schizoaffective disorder Interim history: I reviewed the medical record and interviewed the patient. He refused to get out of bed for the interview. He complained of continued anxiety and fearfulness. He received 20 mg of Geodon IM yesterday evening for marked anxiety and paranoia. He complained that he was going to be killed. Nursing notes that he was trembling and asking staff to call his mother. He then received 1 mg of Ativan by mouth for continued anxiety, fearfulness and paranoia. He does not attend therapeutic groups and activities. He slept 5 hours last night. He has not been eating. Mental status exam: He presented as withdrawn, anxious and paranoid 29-year-old male who is laying in bed. He did not make eye contact but appeared to attend to interview. He perseverated about feeling anxious and being frightened. He had marked psychomotor retardation. Her speech was not spontaneous with decreased rate and rhythm. His affect was anxious and suspicious. He denied current suicidal ideation and wishes. He ruminated over anxiety and paranoia. Express paranoid ideation but no clear paranoid delusional beliefs. His thinking was concrete and not fully organized and goal directed. He denied hallucinations and did not appear to be responding to internal stimuli. Assessment: Remains markedly and severely mentally ill unchanged from admission. Plan: Continue inpatient treatment. Safety precautions. Probate hearing pending. Increase Abilify to 20 mg daily. Consider clonazepam 0.5 mg twice a day Continue Geodon 20 mg IM twice a day when necessary for agitation or acute psychosis and Ativan 1 mg by mouth 3 times a day for anxiety or agitation. Monitor fluid and dietary intake. Encourage participation in therapeutic groups and activities as tolerated. Evaluate clinical status response to treatment daily basis.
--- NOTE | 2019-09-26 16:03 | P.PN ---
Subjective Progress Note Date: 09/26/19 Principal diagnosis: fever Patient is a 33 yo CM admitted to the MHU with parnoia Asked to evaluated by nursing due to fever and diaphoresis. Yesterday he had some hemorrhoidal bleeding that resolved on its own. Patient seen and examined with nursing. He is in bed, curled into a ball, appears diaphoretic. He is very polite but does not want anything done. He denies chest pain, shortness of breath, cough, nausea, vomiting, diarrhea, no problems urinating, states that he feels fine. He does not want to be examined but then agrees to let me listen to his lungs. He repeatedly states that he is fine. He has not ate anything today or yesterday. He reports that he is not hungry and does not want to eat. He has not been our of bed today. Objective - Vital Signs Vital signs: Vital Signs Temp 99.0 F 09/26/19 15:36 Pulse 102 H 09/26/19 13:21 Resp 18 09/26/19 13:21 BP 112/72 09/26/19 13:21 Pulse Ox 96 09/26/19 13:21 Intake & Output 09/25/19 09/26/19 09/26/19 18:59 06:59 18:59 Weight 66.423 kg - Exam General: non toxic, no distress, appears at stated age Derm: warm, diaphoretic Head: atraumatic, normocephalic, symmetric Eyes: EOMI, no lid lag, anicteric sclera Mouth: no lip lesion Cardiovascular: S1S2 reg, no murmur, positive posterior tibial pulse bilateral, Lungs: CTA bilateral, no rhonchi, no rales , no accessory muscle use Psych: Alert, oriented, with drawn appears sacared - Labs CBC & Chem 7: 09/25/19 07:18 09/25/19 07:18 Assessment and Plan Assessment: Pyrexia - undetermined cause, resolved without intervention - check CBC and CMP - Lungs clear no need for CXR - UA - encourage fluids - follow fever profile - alert us of changes [place] - your psych mangement
--- NOTE | 2019-09-27 11:24 | P.PN ---
Progress Note - Text Progress Note Date: 09/27/19 Interval History: Patient was seen laying down in his bed today however when approached by magazine writer, patient refused to get out of his bed and did not open his eyes. He stated that he would rather speak in his room today. He states that he is feeling anxious today and spoke briefly and superficially about the events that occurred after his discharge over a week ago from the mental health unit. Patient claims that he is not taking his medications at home and claims that he was becoming more anxious and paranoid. He states that he was living with his grandmother at the time. He states that he was able to sleep better last night however appears to be in some distress. He states that his mood is "okay" however continues to state that he is anxious. He did not endorse any paranoia or delusions at this time however answered questions very concretely. Patient was suspicious of magazine writer. At this time patient denies any suicidal or homical ideations, intent or plan. Patient denies any auditory, visual hallucinations. Patient denies any side effects from the medications and has been compliant with meds. Mental Status Exam: General Appearance: Patient appears to be tall and thin, stated age is alert, difficult to engage with in conversation. Wearing hospital gown and laying in b ed. Behavior: Patient is calmly seated without any agitated behavior. Appears to be anxious and uncooperative. Speech: Patient's speech is fluent and nonpressured. Mood/Affect: Mood "okay" however endorses anxiety, affect is congruent and constricted. Suicidality/Homicidality: Patient denies having any suicidal or homicidal ideation intent or plan. Perceptions: Patient denies any visual hallucinations and denies any auditory hallucinations Though content/process: [place], logical. Poor historian. Suspicious of magazine writer. Memory and concentration: AOX3, grossly intact for the purposes of this session Judgment and insight: Poor Assessment Psychosis unspecified Generalized anxiety disorder Plan: -Patient continues to meet criteria for inpatient psychiatric admission for symptom stabilization and safety. Patient was previously on a deferral however now will file for demand for hearing and awaiting hearing date. -Medications: Continue with Abilify 20 mg daily for psychosis. Due to patient's noncompliance of medication will likely need to transition patient onto Abilify Maintenna long-acting injection. -When necessary Ativan and Geodon for agitation/aggression. -NRT -not needed as patient does not smoke -SW on board for discharge planning. Encouraged the patient to participate in milieu.
[2019-09-27 21:43] LABS: ALT 14 U/L (4-49); AST 30 U/L (17-59); African American GFR (CKD) >90 (>60 ml/min/1.73 sqM); Albumin 4.4 g/dL (3.5-5.0); Alkaline Phosphatase 78 U/L (38-126); Anion Gap 13 mmol/L; Blood Urea Nitrogen 14 mg/dL (9-20); Calcium 9.3 mg/dL (8.4-10.2); Carbon Dioxide 23 mmol/L (22-30); Chloride 102 mmol/L (98-107); Creatine Kinase 499 U/L (55-170); Glucose 101 mg/dL (74-99); Magnesium 2.2 mg/dL (1.6-2.3); Non-African American GFR(CKD) >90 (>60 ml/min/1.73 sqM); Potassium 3.5 mmol/L (3.5-5.1); Sodium 138 mmol/L (137-145); Total Protein 6.9 g/dL (6.3-8.2)
[2019-09-27 21:59] LABS: Basophils # (A) 0.1 k/uL (0-0.2); Basophils % (A) 1 %; Eosinophils # (A) 0.1 k/uL (0-0.7); Eosinophils % (A) 1 %; HCT 46.2 % (39.0-53.0); HGB 15.5 gm/dL (13.0-17.5); Lymphocytes # (A) 2.1 k/uL (1.0-4.8); Lymphocytes % (A) 21 %; MCH 27.1 pg (25.0-35.0); MCHC 33.6 g/dL (31.0-37.0); MCV 80.7 fL (80.0-100.0); Mean Platelet Volume 8.6; Monocytes # (A) 0.8 k/uL (0-1.0); Monocytes % (A) 8 %; Neutrophils # (A) 6.5 k/uL (1.3-7.7); Neutrophils % (A) 67 %; Platelet Count 160 k/uL (150-450); RBC 5.73 m/uL (4.30-5.90); RDW 13.3 % (11.5-15.5); WBC 9.7 k/uL (3.8-10.6)
[2019-09-28 02:49] VITALS: RESP 18
--- NOTE | 2019-09-28 09:24 | P.PN ---
Progress Note - Text Progress Note Date: 09/28/19 Interval History: Patient was seen laying down in his bed today however when approached by signwriter, patient again refused to get out of his bed this morning. Patient states that he was able to get out of bed yesterday however adamantly refuses to get out of bed today. She states that he feels "tired" and does not elaborate more on that. he was concrete in his answers and gave minimal information. He states that his mood is "fine" and denied any depression today, he states that his anxiety has been improving. Patient was asking repeatedly if signwriter spoke to his mother over the phone. Patient has poor insight and judgment. He did not endorse any paranoia or delusions at this time however answered questions very concretely. Patient was suspicious of signwriter. At this time patient denies any suicidal or homical ideations, intent or plan. Patient denies any auditory, visual hallucinations. Patient denies any side effects from the medications and has been compliant with meds. Mental Status Exam: General Appearance: Patient appears to be tall and thin, stated age is alert, ending is to be difficult to engage with in conversation. Wearing hospital gown and laying in bed. Behavior: Patient is calmly seated without any agitated behavior. Appears to be anxious and uncooperative. Withdrawn/isolative. Speech: Patient's speech is fluent and nonpressured. Mood/Affect: Mood "fine" however endorses anxiety which has been improving, affect is congruent and constricted. Suicidality/Homicidality: Patient denies having any suicidal or homicidal ideation intent or plan. Perceptions: Patient denies any visual hallucinations and denies any auditory hallucinations Though content/process: [place], logical. Poor historian. Suspicious of signwriter. Memory and concentration: AOX3, grossly intact for the purposes of this session Judgment and insight: Poor Assessment Psychosis unspecified Generalized anxiety disorder Plan: -Patient continues to meet criteria for inpatient psychiatric admission for symptom stabilization and safety. Awaiting demand for hearing date. -Medications: Decreased Abilify 10 mg daily for psychosis as patient may be oversedated by the medication. Due to patient's noncompliance of medication will likely need to transition patient onto Abilify Maintenna long-acting injection prior to discharge. -When necessary Ativan and Geodon for agitation/aggression. -NRT -not needed as patient does not smoke -SW on board for discharge planning. Encouraged the patient to participate in milieu. Awaiting demand for hearing date.
[2019-09-28 10:58] LABS: T4, Free (Free Thyroxine) 1.53 ng/dL (0.78-2.19)
[2019-09-29 06:55] VITALS: BP 111/76; TEMP 97.9
[2019-09-29] MEDS ORDERED: ARIPiprazole 10 MG TAB PO SCH (09:00)
[2019-09-29 09:01] LABS: Basophils # (A) 0.1 k/uL (0-0.2); Basophils % (A) 1 %; Eosinophils # (A) 0.1 k/uL (0-0.7); Eosinophils % (A) 1 %; HCT 47.2 % (39.0-53.0); HGB 16.1 gm/dL (13.0-17.5); Lymphocytes # (A) 1.1 k/uL (1.0-4.8); Lymphocytes % (A) 8 %; MCH 27.7 pg (25.0-35.0); MCHC 34.1 g/dL (31.0-37.0); MCV 81.4 fL (80.0-100.0); Mean Platelet Volume 8.7; Monocytes # (A) 0.9 k/uL (0-1.0); Monocytes % (A) 7 %; Neutrophils # (A) 10.7 k/uL (1.3-7.7); Neutrophils % (A) 82 %; Platelet Count 170 k/uL (150-450); RDW 13.2 % (11.5-15.5); WBC 13.1 k/uL (3.8-10.6)
[2019-09-29 09:34] LABS: ALT 16 U/L (4-49); AST 44 U/L (17-59); African American GFR (CKD) >90 (>60 ml/min/1.73 sqM); Albumin 4.4 g/dL (3.5-5.0); Alkaline Phosphatase 76 U/L (38-126); Anion Gap 11 mmol/L; Blood Urea Nitrogen 19 mg/dL (9-20); Calcium 9.5 mg/dL (8.4-10.2); Carbon Dioxide 24 mmol/L (22-30); Chloride 105 mmol/L (98-107); Glucose 133 mg/dL (74-99); Non-African American GFR(CKD) >90 (>60 ml/min/1.73 sqM); Sodium 140 mmol/L (137-145); Total Bilirubin 1.4 mg/dL (0.2-1.3); Total Protein 7.1 g/dL (6.3-8.2)
--- NOTE | 2019-09-29 09:53 | P.PN ---
Progress Note - Text Progress Note Date: 09/29/19 Interval History: Patient was seen laying down in his bed today once again and continued to refuse to get out of bed. He continues to state that he is feeling "tired" to ad copy writer and barely opened his eyes during conversation. Patient did appear to have vesicular lesions on his nose and when asked about a patient states that "it's because I was laying down so much". He continues to have poor insight and judgment. He states that he is feeling "fine" is not complaining of any pain or any discomfort. He states that he was able to sleep throughout the night. Patient appears to be visibly ill and was sweating over his forehead. he was concrete in his answers and gave minimal information. He states that his mood is "ok" and denied any depression today, he states that his anxiety is fair. He did not endorse any paranoia or delusions at this time however answered questions very concretely. At this time patient denies any suicidal or homical ideations, intent or plan. Patient denies any auditory, visual hallucinations. Patient was confused about today's date and only claimed that it was "September" however did not know the year and stated "you should know the year" or did not know the date either. He did not that he was in hospital. Mental Status Exam: General Appearance: Patient appears to be tall and thin, stated age is lethargic, difficult to engage with an conversation, appears to be visibly ill. Wearing hospital gown and laying in bed. Behavior: Patient is calmly seated without any agitated behavior. Uncooperative. Withdrawn/isolative. Speech: Patient's speech is fluent and nonpressured. Mood/Affect: Mood "ok" however endorses anxiety which has been improving, affect is congruent and constricted. Suicidality/Homicidality: Patient denies having any suicidal or homicidal ideation intent or plan. Perceptions: Patient denies any visual hallucinations and denies any auditory hallucinations Though content/process: [place], logical. Poor historian. Suspicious of ad copy writer. Memory and concentration: AOX2, appears to be mildly confused today and knows that it is "September" however does not know the year or the date. Poor attention span. Judgment and insight: Poor Assessment Psychosis unspecified Generalized anxiety disorder Plan: -Patient continues to meet criteria for inpatient psychiatric admission for symptom stabilization and safety. Demand for hearing date set for 10/06/2019 at 11:30 AM. -Medications: Discontinued Abilify due to possible oversedation or adverse effect. -When necessary Ativan and Geodon for agitation/aggression. -Rechecked blood work today, WBCs 13.1, ANC 10.7, creatinine kinase 457. TSH 0.23 and T4 1 0.53. Vitals within normal limits except for mild tachycardia. Patient is afebrile. Will ask internal medicine for evaluation and recommendations. Awaiting urine analysis. -NRT -not needed as patient does not smoke -SW on board for discharge planning. Encouraged the patient to participate in milieu. Demand for hearing date set for 10/06/2019 at 11:30 AM.
[2019-09-29] MEDS ORDERED: SODIUM CHLORIDE 0.9% 500 ML 500 ML IV ONE (10:32)
[2019-09-29] MEDS ORDERED: SODIUM CHLORIDE 0.9% 1,000 ML IV SCH (10:45)
[2019-09-29] MEDS ORDERED: MUPIROCIN 2% OINT 22 GM TUBE TOPICAL SCH (10:45)
--- NOTE | 2019-09-29 11:06 | XR ---
EXAMINATION TYPE: XR chest 1V portable DATE OF EXAM: 09/29/2019 CLINICAL HISTORY: Fever. TECHNIQUE: Single AP portable supine view of the chest is obtained. COMPARISON: None, FINDINGS: Elevated left hemidiaphragm. No suspicious focal airspace opacity, pleural effusion, or pn eumothorax. Cardiac flow size is within normal limits. There is pneumomediastinum extending into the neck. There is additional subcutaneous emphysema in the right supraclavicular region. Osseous structu res grossly intact. IMPRESSION: No suspicious focal infiltrate. Pneumomediastinum with additional right supraclavicular s ubcutaneous emphysema. Follow-up advised.
[2019-09-29] MEDS ORDERED: CIPROFLOXACIN 0.3% OPHTH SOLN 5 ML BTL RIGHT EYE SCH (12:00)
[2019-09-29 12:42] VITALS: PULSE 106
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
--- NOTE | 2019-09-29 15:44 | CT ---
EXAMINATION TYPE: CT brain wo con DATE OF EXAM: 09/29/2019 COMPARISON: None. HISTORY: ams CT DLP: 1276.4 mGycm. Automated Exposure Control for Dose Reduction was Utilized. TECHNIQUE: CT scan of the head is performed without contrast. FINDINGS: There is no acute intracranial hemorrhage, mass effect, or midline shift identified. The ventricles and sulci are within normal limits in size. Cortes-white matter differentiation fairly well -maintained. The globes are intact and the visualized sinuses are clear. IMPRESSION: No acute intracranial hemorrhage or midline shift is seen.
--- NOTE | 2019-09-29 18:03 | P.PN ---
Progress Note - Text Progress Note Date: 09/29/19 Hospitalist Interval Note Called to see patient by nursing for altered mentation and increasing CPK Patient seen and examined at bedside. No chest pain, SOB, nausea, vomiting, diarrhea. Wont eat but states that he will drink. Refuses exam multiple times and continually repeats "I'm fine" " no thank you" Vital signs reviewed General: ill appearing, mild distress, appears at stated age Derm: warm, dry, yellow, green discoloration on right nare Head: atraumatic, normocephalic, symmetric, crepitus behind right ear Eyes: EOMI, no lid lag, anicteric sclera, yellow discharge right eye Mouth: + lip lesion bottom area of abrasion, mucus membranes dry Cardiovascular: S1S2 reg, no murmur, positive posterior tibial pulse bilateral, Lungs: CTA bilateral, no rhonchi, no rales , no accessory muscle use Abdominal: soft, nontender to palpation, no guarding, no appreciable organomegaly Ext: no gross muscle atrophy, no edema, no contractures Neuro: CN II-XI grossly intact, no focal neuro deficits Psych: Alert, anxious, resfuses examination multiple times and states that I am fine Assessment/Plan: Fever with leukocytosis- stat CXR, UA, IVF, Letheragic- neuro conuslt, D/W neurology and stat head CT ordred, reviewed and was negative conjunctivitis- ciprodex Stat CXR came back with pneumedistinum and patient transferred to the medical unit please see medical H and P for more information. This is an update note for patient , for full note on 09/29/2019 see H and P for medical admission. There is no charge associated with this note.
== END 2019-09-29 13:27 | disposition short-term general hospital (02) | DRG 885 ==
LOC: EC 03:17 → 3MHU 04:35
PROVIDERS: ADMIT Psychiatry & Neurology Psychiatry; ATTEND Psychiatry & Neurology Psychiatry
DX: F23 Brief psychotic disorder (principal); G03.9 Meningitis, unspecified; R45.851 Suicidal ideations; J98.2 Interstitial emphysema; Z91.14 Patient's other noncompliance with medication regimen; F41.0 Panic disorder [episodic paroxysmal anxiety]; F41.1 Generalized anxiety disorder; F43.10 Post-traumatic stress disorder, unspecified; G47.00 Insomnia, unspecified; K64.9 Unspecified hemorrhoids; R00.0 Tachycardia, unspecified; H10.9 Unspecified conjunctivitis; K13.0 Diseases of lips; F32.9 Major depressive disorder, single episode, unspecified; D72.829 Elevated white blood cell count, unspecified; R41.82 Altered mental status, unspecified; Z71.3 Dietary counseling and surveillance; Z79.899 Other long term (current) drug therapy; Z56.0 Unemployment, unspecified; Z91.013 Allergy to seafood
CPT/HCPCS: 70450; 71045; 80053; 80061; 82248; 82550; 83735; 84439; 84443; 85025; 99285

== ENCOUNTER 2019-09-29 12:58 | Inpatient (IN) | payer OTHER ==
[2019-09-29] MEDS ORDERED: ALPRAZolam 0.25 MG TAB PO PRN (14:29)
[2019-09-29] MEDS ORDERED: HYDROcodone/APAP 5-325MG 1 EACH TAB PO PRN (14:29)
[2019-09-29] MEDS ORDERED: LACTULOSE 20 GM/30 ML CUP PO PRN (14:29)
[2019-09-29] MEDS ORDERED: ACETAMINOPHEN TAB 325 MG TAB PO PRN (14:29)
[2019-09-29] MEDS ORDERED: NALOXONE 0.4 MG/ML 1 ML VIAL IV PRN (14:29)
[2019-09-29] MEDS ORDERED: MORPHINE SULFATE 4 MG/ML SYRINGE IV PRN (14:29)
[2019-09-29] MEDS ORDERED: ONDANSETRON 4 MG/2 ML VIAL IVP PRN (14:29)
[2019-09-29] MEDS ORDERED: RX INFO: IV CONTRAST WAS GIVEN 1 EACH MISC MISCELLANE PRN (14:34)
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
--- NOTE | 2019-09-29 15:49 | CT ---
EXAMINATION TYPE: CT chest w con DATE OF EXAM: 09/29/2019 COMPARISON: NONE HISTORY: Pneumomediastinum, abnormal x-ray. CT DLP: 383.6 mGycm. Automated Exposure Control for Dose Reduction was Utilized. TECHNIQUE: CT scan of the thorax is performed following with IV Contrast, patient injected with 100 mL of Isovue 300. FINDINGS: Exam noted suboptimal as patient unable to hold breath. LUNGS: Focal left basilar linear scarring and/or atelectasis axial image 43. There is no pleural effu darryl or definitive pneumothorax seen bilaterally. No suspicious focal consolidation. The tracheobronc hial tree is patent. MEDIASTINUM: There are no greater than 1 cm hilar or mediastinal lymph nodes. No cardiomegaly or pe ricardial effusion is seen. Confirmation of known pneumomediastinum extending from diaphragm up to t he right neck with cutaneous emphysema at this level right supraclavicular region surrounding muscles and vessels. Some mild mass effect on the anterior aspect of both lower lobes noted. OTHER: Subcentimeter lesion posterior right hepatic lobe axial image 48 to small to further character ize presumed benign. IMPRESSION: Confirmation of known large amount of pneumomediastinum. Confirmation of subcutaneous emp hysema right supraclavicular region. No pneumothorax seen. No obvious acute osseous displaced fractur e. No suspicious focal pulmonary infiltrate.
[2019-09-29 16:36] LABS: Basophils # (A) 0.1 k/uL (0-0.2); Basophils % (A) 1 %; Eosinophils # (A) 0.1 k/uL (0-0.7); Eosinophils % (A) 1 %; HCT 45.4 % (39.0-53.0); HGB 15.5 gm/dL (13.0-17.5); Lymphocytes # (A) 1.5 k/uL (1.0-4.8); Lymphocytes % (A) 14 %; MCH 28.1 pg (25.0-35.0); MCHC 34.1 g/dL (31.0-37.0); MCV 82.4 fL (80.0-100.0); Mean Platelet Volume 8.9; Monocytes # (A) 0.8 k/uL (0-1.0); Monocytes % (A) 8 %; Neutrophils # (A) 8.2 k/uL (1.3-7.7); Neutrophils % (A) 76 %; Platelet Count 176 k/uL (150-450); RBC 5.51 m/uL (4.30-5.90); RDW 13.1 % (11.5-15.5); WBC 10.8 k/uL (3.8-10.6)
[2019-09-29 16:44] LABS: INR 1.2 (<1.2); Prothrombin Time 11.9 sec (9.0-12.0)
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
[2019-09-29 16:59] LABS: ALT 14 U/L (4-49); AST 37 U/L (17-59); African American GFR (CKD) >90 (>60 ml/min/1.73 sqM); Albumin 3.7 g/dL (3.5-5.0); Alkaline Phosphatase 66 U/L (38-126); Anion Gap 11 mmol/L; Blood Urea Nitrogen 16 mg/dL (9-20); Calcium 8.9 mg/dL (8.4-10.2); Carbon Dioxide 23 mmol/L (22-30); Chloride 105 mmol/L (98-107); Creatine Kinase 800 U/L (55-170); Glucose 109 mg/dL (74-99); Magnesium 2.2 mg/dL (1.6-2.3); Non-African American GFR(CKD) >90 (>60 ml/min/1.73 sqM); Potassium 3.6 mmol/L (3.5-5.1); Sodium 139 mmol/L (137-145); Total Bilirubin 1.2 mg/dL (0.2-1.3); Total Protein 6.2 g/dL (6.3-8.2)
[2019-09-29] MEDS: SODIUM CHLORIDE 0.9% 1,000 ML IV SCH ×2 (17:04→23:43)
[2019-09-29] MEDS: NYSTATIN 100,000 UNIT/ML SUSP 500,000 UNIT/5 ML CUP PO SCH ×2 (17:41→23:36)
[2019-09-29] MEDS: AMPICILLIN-SULBACTAM 3 GM in SODIUM CHLORIDE 0.9% 100 ML IVPB SCH ×2 (20:36→23:35)
[2019-09-29] MEDS: LORazepam 0.5 MG TAB PO SCH (20:44)
[2019-09-29] MEDS: CIPROFLOXACIN 0.3% OPHTH SOLN 5 ML BTL RIGHT EYE SCH ×2 (20:48→23:43)
[2019-09-30] MEDS: CIPROFLOXACIN 0.3% OPHTH SOLN 5 ML BTL RIGHT EYE SCH ×6 (03:33→23:27)
[2019-09-30] MEDS: AMPICILLIN-SULBACTAM 3 GM in SODIUM CHLORIDE 0.9% 100 ML IVPB SCH ×4 (05:00→23:24)
[2019-09-30] MEDS: SODIUM CHLORIDE 0.9% 1,000 ML IV SCH ×2 (05:02→17:40)
[2019-09-30 07:39] LABS: HCT 40.8 % (39.0-53.0); HGB 13.5 gm/dL (13.0-17.5); MCH 27.3 pg (25.0-35.0); MCHC 33.1 g/dL (31.0-37.0); MCV 82.5 fL (80.0-100.0); Mean Platelet Volume 8.9; Platelet Count 148 k/uL (150-450); RBC 4.94 m/uL (4.30-5.90); RDW 13.3 % (11.5-15.5); WBC 8.8 k/uL (3.8-10.6)
[2019-09-30 07:49] LABS: INR 1.1 (<1.2)
[2019-09-30 07:55] LABS: African American GFR (CKD) >90 (>60 ml/min/1.73 sqM); Anion Gap 7 mmol/L; Blood Urea Nitrogen 12 mg/dL (9-20); Calcium 8.4 mg/dL (8.4-10.2); Carbon Dioxide 25 mmol/L (22-30); Chloride 109 mmol/L (98-107); Glucose 88 mg/dL (74-99); Magnesium 2.1 mg/dL (1.6-2.3); Non-African American GFR(CKD) >90 (>60 ml/min/1.73 sqM); Phosphorus 2.6 mg/dL (2.5-4.5); Potassium 3.7 mmol/L (3.5-5.1); Sodium 141 mmol/L (137-145)
--- NOTE | 2019-09-30 10:34 | P.PN ---
Subjective Progress Note Date: 09/30/19 Principal diagnosis: Pneumomediastinum. Previous medical history of PTSD, depression, psychosis with paranoia and anxiety. The patient was laying in bed this morning in no acute distress. Denies any pain or shortness of breath. Currently nothing by mouth for barium swallow. Asking for his mother. Objective - Vital Signs Vital signs: Vital Signs Temp 98.4 F 09/30/19 08:00 Pulse 94 09/30/19 08:00 Resp 16 09/30/19 08:00 BP 142/82 09/30/19 08:00 Pulse Ox 98 09/30/19 08:00 Intake & Output 09/29/19 09/30/19 09/30/19 18:59 06:59 18:59 Weight 66.423 kg Other: # Voids 1 - Constitutional General appearance: Present: cooperative, no acute distress, thin - Respiratory Details: Lungs sounds bilaterally. Respirations even, nonlabored. Currently on room air with oxygen saturation 98%. - Cardiovascular Details: S1, S2 present. Regular rate and rhythm, sinus rhythm on telemetry. Palpable peripheral pulses bilaterally. No edema present. No calf pain or tenderness noted. - Gastrointestinal Gastrointestinal Comment(s): Abdomen soft, nontender, nondistended. Active bowel sounds present 4 quadrants. Currently nothing by mouth - Genitourinary Genitourinary Comment(s): Continues to void - Integumentary Integumentary Comment(s): Skin is warm and dry, pale - Neurologic Neurologic: Present: CNII-XII intact - Musculoskeletal Musculoskeletal: Present: strength equal bilaterally - Psychiatric Psychiatric Comment(s): Anxious Psychiatric: Present: A&O x's 3 - Allied health notes Allied health notes reviewed: nursing - Labs CBC & Chem 7: 09/30/19 07:08 09/30/19 07:08 Labs: Abnormal Lab Results - Last 24 Hours (Table) 09/29/19 09/29/19 09/29/19 Range/Units 16:15 16:15 16:15 WBC 10.8 H (3.8-10.6) k/uL Plt Count (150-450) k/uL Neutrophils # 8.2 H (1.3-7.7) k/uL INR 1.2 H (<1.2) Chloride (98-107) mmol/L Glucose 109 H (74-99) mg/dL Creatine Kinase 800 H (55-170) U/L Total Protein 6.2 L (6.3-8.2) g/dL 09/30/19 09/30/19 Range/Units 07:08 07:08 WBC (3.8-10.6) k/uL Plt Count 148 L (150-450) k/uL Neutrophils # (1.3-7.7) k/uL INR (<1.2) Chloride 109 H (98-107) mmol/L Glucose (74-99) mg/dL Creatine Kinase (55-170) U/L Total Protein (6.3-8.2) g/dL - Imaging and Cardiology Chest x-ray: image reviewed CT scan - chest: report reviewed, image reviewed Assessment and Plan Assessment: 1. Pneumomediastinum 2. Leukocytosis, resolved 3. History of posttraumatic stress disorder 4. Paranoia and psychosis 5. Anxiety 6. History of depression Plan: 1. Will review barium swallow study when results available. 2. IV Pepcid added 3. Increase activity ambulate as tolerated 4. Mental health management per psychiatry 5. Management of other medical comorbidities per primary care service 6. More recommendations to follow once barium swallow study completed Time with Patient: Greater than 30
--- NOTE | 2019-09-30 11:26 | XR ---
EXAMINATION TYPE: XR chest 1V portable DATE OF EXAM: 09/30/2019 CLINICAL HISTORY: Abnormal x-ray, pneumomediastinum progress study. TECHNIQUE: Single AP portable upright view of the chest is obtained. COMPARISON: Chest x-ray and CT chest from one day earlier FINDINGS: Some motion artifact degradation on current study. Persistent but improving pneumomediastin um and fairly stable right supraclavicular subcutaneous emphysema. Lungs remain clear. Cardiac silhou ette size remains within normal limits. Osseous structures are intact. IMPRESSION: Improving pneumomediastinum. Stable right supraclavicular subcutaneous emphysema. No new acute pulmonary process.
--- NOTE | 2019-09-30 11:49 | FL ---
EXAMINATION TYPE: FL barium swallow DATE OF EXAM: 09/30/2019 HISTORY: Pneumomediastinum. COMPARISON: CT chest 09/29/2019. Chest radiograph 09/29/2019 and 09/30/2019. TECHNIQUE: Attempted water-soluble contrast esophagram examination canceled. FINDINGS: Water-soluble contrast esophagram examination was canceled due to patient inability to follow instruc tions and inability to initiate swallow. Water-soluble contrast given to patient in cup with a straw, however patient would not drink. Examination canceled and patient's floor nurse was notified. Total fluoroscopy time: 23 seconds No images obtained: 0 IMPRESSION: Canceled esophagram examination due to patient inability to ingest oral contrast or foll ow commands.
[2019-09-30] MEDS: NYSTATIN 100,000 UNIT/ML SUSP 500,000 UNIT/5 ML CUP PO SCH ×4 (12:10→21:04)
[2019-09-30] MEDS: FAMOTIDINE 20 MG/2 ML VIAL IV SCH ×2 (12:23→20:09)
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
--- NOTE | 2019-09-30 13:22 | P.CN ---
Psychiatric Consult - . Consult date: 09/30/19 Consult:: 09/30/19 10:41 IDENTIFYING DATA: A 33-year-old single male who currently lives with his mother and has a history of PTSD anxiety and paranoia. HISTORY OF PRESENT ILLNESS: Patient was initially discharged on 09/17/2019 with diagnoses of unspecified psychosis and generalized anxiety disorder. His discharge medications included Abilify 10 mg daily. The patient stated that he became increasingly anxious when he returned to his parent's home. He talked about developing a belief that people were watching him and trying to "get him." He believed that people were hiding in the [place] around his parents home. He then spent 2 or 3 days at his grandmother's house believing that anxiety and paranoia was due to living at his parent's home. However the anxiety and paranoia continued and worsened to the point where she became afraid to eat or drink fluids. He developed a belief that both the water and food were poisoned. He alleged that he has not eaten and only drank "a little bit" of water since his discharge. Patient was admitted once again to the mental health unit for psychosis/paranoia along with anxiety and was restarted on his Abilify by mouth. Patient was noted to be withdrawn on the unit and uncooperative and also having a lack of appetite. Patient remained in a position and refused to get out of bed for almost 3 days while he was on the mental health unit and was not taking his medications. Patient was seen by brewery cellar worker who ordered a chest x-ray which showed pneumomediastinum and subcutaneous emphysema. Patient had a computed tomography scan of his chest which showed confirmation of pn eumomediastinum and did not show any pneumothorax or displaced fractures. Patient was scheduled to have a barium swallow and was currently nothing by mouth. Psychiatry is consulted for continuation of psychiatric care on the medical floors. Patient was seen at the bedside and appeared to be weak and visibly ill. Patient's mother was at the bedside who stated her concerns about patient's treatment and condition. Patient was able to answer most questions by junior underwriter and denied any pain or feeling ill. Patient did not offer any complaints however did request to have water several times. Patient did appear to be anxious and his affect and states that his mood is "fine". He denied any paranoia at this time. He states that he slept well last night. Patient was not able to move his limbs on command. He denied any suicidal or homicidal ideations intent or plan and denied any auditory or visual hallucinations. PAST PSYCHIATRIC HISTORY: This is his sixth hospitalization. His first admitted to a psychiatric facility admission when he was 16 years old. He talked about having been hospitalized for 2-1/2 pounds psychiatric facility in [place] in 2019. Patient was on Abilify 10 mg daily. He is active with [facility]. PAST MEDICAL HISTORY: He denied history of major medical problems. ALLERGIES: NO KNOWN DRUG ALLERGIES SUBSTANCE USE HISTORY:. He denied history of substance use and substance use problems. FAMILY PSYCHIATRIC/SUBSTANCE USE HISTORY: Denies LEGAL HISTORY: Denies SOCIAL HISTORY: He was born and raised in [place] to an intact family. He graduated from high school. He has held intermittent unskilled jobs. He lived briefly in [place] in 2019. No back to [place] in March of this year. He has no income MENTAL STATUS EXAM: General Appearance: Patient appears to be stated age is lethargic, difficult to redirect and appears to be visibly ill/weak. Patient appears to have poor hygiene and grooming wearing hospital gown with poor eye contact. Behavior: Patient is calmly lying in bed without any agitated behavior. Difficult to redirect. Speech: Patient's speech is fluent and nonpressured. Soft tone Mood/Affect: Patient reports their mood is "ok", affect is incongruent and constricted. Suicidality/Homicidality: Patient denies having any suicidal or homicidal ideation intent or plan. Perceptions: Patient denies any visual hallucinations and denies any auditory hallucinations Though content/process: Patient is perseverating on water and minimizing his symptoms. Illogical at times mild paranoia. Memory and concentration: AOX2, he knows that it is September 2019 however does not know the specific date, poor attention span. Judgment and insight: poor IMPRESSIONS: Psychosis unspecified, rule out schizoaffective disorder Generalized anxiety disorder. PLAN: -At this time patient DOES NOT meet criteria for inpatient psychiatric transfer as patient is medically ill, however when patient is medically stable then he can be transferred back to mental health unit. -Would recommend the following medication changes/additions: Continue with Abilify 10 mg daily for mood stabilization/psychosis. Can use Geodon 20 mg IM twice a day when necessary for agitation -Continue 1:1 sitter for safety -Cannot leave AMA at this time. Patient currently has a pending demand for hearing date scheduled for 10/06/2019 for treatment order. -Will continue to follow along -Please contact with any questions.
[2019-09-30] MEDS: ARIPiprazole 10 MG TAB PO SCH (16:55)
[2019-09-30] MEDS: LORazepam 0.5 MG TAB PO SCH ×2 (16:55→20:13)
--- NOTE | 2019-09-30 17:17 | P.PN ---
Subjective Progress Note Date: 09/30/19 Principal diagnosis: Pneumomediastinum Patient was seen and examined. No acute events overnight. He appears very paranoid. Mother at bedside along with sitter. Patient refusing barium swallow this morning refusing to swallow barium. States that he would like to do it tomorrow. He denies any chest pain, shortness of breath or palpitations. No nausea or vomiting. No fever or chills. Objective - Vital Signs Vital signs: Vital Signs Temp 98.4 F 09/30/19 08:00 Pulse 91 09/30/19 12:00 Resp 16 09/30/19 16:00 BP 123/84 09/30/19 12:00 Pulse Ox 95 09/30/19 12:00 Intake & Output 09/29/19 09/30/19 09/30/19 18:59 06:59 18:59 Weight 66.423 kg Other: # Voids 1 1 - Exam General: [non toxic], [no distress], [appears at stated age] Derm: [warm], [dry] Head: [atraumatic], [normocephalic], [symmetric] Eyes: [EOMI], [no lid lag], [anicteric sclera] Mouth: [no lip lesion], [mucus membranes moist] Cardiovascular: [S1S2 reg], [tachycardic], [positive posterior tibial pulse bilateral], Lungs: [Decreased breath sounds bilateral], [no rhonchi, no rales] , [no accessory muscle use] Abdominal: [soft], [ nontender to palpation], [no guarding], [no appreciable organomegaly] Ext: [no gross muscle atrophy], [no edema], [no contractures] Neuro: [no focal neuro deficits] Psych: [Alert], [oriented], [appears paranoid] - Labs CBC & Chem 7: 09/30/19 07:08 09/30/19 07:08 Labs: Abnormal Lab Results - Last 24 Hours (Table) 09/30/19 09/30/19 Range/Units 07:08 07:08 Plt Count 148 L (150-450) k/uL Chloride 109 H (98-107) mmol/L Assessment and Plan Assessment: Pneumomediastinum - CT chest with contrast shows confirmation of large amount of pneumomediastinum, confirmation of subcutaneous emphysema in the right subclavicular region - Continue Unasyn for antibiotic coverage - Consult Dr. Asif and Dr. Grewal - Patient refusing barium swallow will reattempt tomorrow morning, keep patient nothing by mouth - Telemetry monitoring - O2 at 2 L NC Altered mentation - supprotive care, possibly related to underlying psych disorder Paranoia and psychosis - Abilify Resolved: Leukocytosis [Patient admitted for pneumomediastinum. Refusing barium swallow. Will cj ttempt tomorrow morning. He is pending clinical improvement. Likely DC in 2-3 days.]
[2019-09-30] MEDS ORDERED: LORazepam 2 MG/ML INJ IV PRN (19:01)
--- NOTE | 2019-09-30 22:05 | CONS ---
CONSULTATION DATE OF DICTATION: 09/30/2019 REASON FOR CONSULTATION: Nausea, vomiting and pneumomediastinum. HISTORY OF PRESENT ILLNESS: The patient is a 33-year-old pleasant white male with a history of anxiety, depression and psychosis who was admitted to the mental health unit on September 24 because of increasing anxiety and depression. While in the psychiatric unit, the patient apparently was self-inducing nausea, vomiting and was retching continuously. This morning he had a low-grade fever. He had a chest x-ray done that showed subcutaneous emphysema and subsequently a CT of the chest was obtained that showed a large amount of pneumomediastinum and subcutaneous emphysema all the way up to the supraclavicular region. Hence we are consulted for possible esophageal tear/Boerhaave syndrome. The patient presently denies any chest pain. He reports no shortness of breath. He admits to self-inducing emesis but he denies retching. He denies any heartburn. Reports no dysphagia or odynophagia. The patient is currently scheduled for a Gastrografin swallow. It has not been done yet. PAST MEDICAL HISTORY: Past medical history is significant for anxiety, depression, PTSD. PAST SURGICAL HISTORY: Unremarkable. MEDICATIONS: Abilify, Tylenol, Ativan. FAMILY HISTORY: Father with COPD. Mother had coronary artery disease. ALLERGIES: SHELLFISH. REVIEW OF SYSTEMS: CARDIOPULMONARY: No chest pain or shortness of breath. GENITOURINARY: No dysuria or hematuria. MUSCULOSKELETAL: Unremarkable. SKIN: Unremarkable. ENDOCRINE: Unremarkable. PSYCHIATRIC: Anxiety, depression and psychosis. NEUROLOGY: Unremarkable. ENT/VISION: Unremarkable. CONSTITUTIONAL: No recent weight loss. No fever, chills, night sweats. PHYSICAL EXAMINATION: He appears comfortable. No apparent distress. Vital signs are stable. Blood pressure 133/91, pulse rate 86, temperature 98.4. HEENT examination unremarkable. Conjunctivae pink. Sclerae anicteric. Oral cavity no lesions. NECK: No JVD or lymph node enlargement. CHEST: Clear to auscultation. Mild subcutaneous emphysema noted in the right supraclavicular area. ABDOMEN: Soft. Bowel sounds are positive. No organomegaly. EXTREMITIES: No pedal edema. SKIN: No rashes. NEUROLOGIC: Alert and oriented x3. No focal deficits. LABS: WBC 8.8, hemoglobin 13.5, platelets 149. Basic metabolic panel is within normal limits. PT and INR within normal limits. IMPRESSION: 1. Pneumomediastinum noted on CT of the chest related to intense retching and self- induced vomiting while on the psychiatric floor for the last 2 days. Clinically he is asymptomatic. Denies any chest pain or shortness of breath. 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 We are consulted for possible EGD, as patient is refusing barium swallow. 2. History of anxiety and psychosis. 3. History of post-traumatic stress disorder. RECOMMENDATIONS: 1. No indication for an upper endoscopy at the present time, as this would aggravate and worsen the current situation if he has any esophageal perforation. 2. Keep him n.p.o. 3. Obtain a Gastrografin swallow as soon as possible. 4. Continue broad-spectrum antibiotics. 5. Repeat CBC in the morning. Will follow with you closely. Thank you for this consultation. MMODL / IJN: [id number] /
[2019-10-01] MEDS: CIPROFLOXACIN 0.3% OPHTH SOLN 5 ML BTL RIGHT EYE SCH ×5 (03:05→22:16)
[2019-10-01] MEDS: AMPICILLIN-SULBACTAM 3 GM in SODIUM CHLORIDE 0.9% 100 ML IVPB SCH ×3 (05:08→16:46)
[2019-10-01] MEDS: NYSTATIN 100,000 UNIT/ML SUSP 500,000 UNIT/5 ML CUP PO SCH ×4 (08:26→22:16)
[2019-10-01] MEDS: FAMOTIDINE 20 MG/2 ML VIAL IV SCH ×2 (08:30→22:16)
--- NOTE | 2019-10-01 10:52 | P.PN ---
Subjective Progress Note Date: 10/01/19 Principal diagnosis: Pneumomediastinum. Previous medical history of PTSD, depression, psychosis with paranoia and anxiety. The patient was laying in bed this morning in no acute distress. Denies any pain or shortness of breath. Currently nothing by mouth for barium swallow, r efused barium swallow yesterday. States he will go for barium swallow today. Asking for his mother. Objective - Vital Signs Vital signs: Vital Signs Temp 97.3 F L 09/30/19 20:00 Pulse 93 10/01/19 04:00 Resp 18 10/01/19 04:00 BP 129/83 10/01/19 04:00 Pulse Ox 97 10/01/19 04:00 Intake & Output 09/30/19 10/01/19 10/01/19 18:59 06:59 18:59 Output Total 300 Balance -300 Output: Urine 300 Other: # Voids 1 - Constitutional General appearance: Present: cooperative, no acute distress, thin - EENT Eyes: Present: PERRLA - Respiratory Details: Lungs sounds bilaterally. Respirations even, nonlabored. Currently on room air with oxygen saturation 98%. - Cardiovascular Details: S1, S2 present. Regular rate and rhythm, sinus rhythm on telemetry. Palpable peripheral pulses bilaterally. No edema present. No calf pain or tenderness noted. - Gastrointestinal Gastrointestinal Comment(s): Abdomen soft, nontender, nondistended. Active bowel sounds present 4 quadran ts. Currently nothing by mouth - Genitourinary Genitourinary Comment(s): Continues to void - Integumentary Integumentary Comment(s): Skin is warm and dry, pale - Neurologic Neurologic: Present: CNII-XII intact - Musculoskeletal Musculoskeletal: Present: gait normal, strength equal bilaterally - Psychiatric Psychiatric: Present: A&O x's 3 - Allied health notes Allied health notes reviewed: nursing - Labs CBC & Chem 7: 09/30/19 07:08 09/30/19 07:08 Labs: Abnormal Lab Results - Last 24 Hours (Table) 09/30/19 Range/Units 07:08 Chloride 109 H (98-107) mmol/L Assessment and Plan Assessment: 1. Pneumomediastinum 2. Leukocytosis, resolved 3. History of posttraumatic stress disorder 4. Paranoia and psychosis 5. Anxiety 6. History of depression Plan: 1. Will review barium swallow study once completed and results available. 2. IV Pepcid added 3. Increase activity ambulate as tolerated 4. Mental health management per psychiatry 5. Management of other medical comorbidities per primary care service 6. More recommendations to follow once barium swallow study completed Time with Patient: Greater than 30
--- NOTE | 2019-10-01 11:13 | FL ---
EXAMINATION TYPE: FL barium swallow DATE OF EXAM: 10/01/2019 CLINICAL HISTORY: Recently diagnosed pneumomediastinum. Rule out esophageal tear. TECHNIQUE: A single contrast esophagram is attempted utilizing barium. A total of 34 seconds of flu oroscopic time was utilized during attempted procedure. 8 spot images saved. COMPARISON: Attempted esophagram yesterday. FINDINGS: Due to patient's underlying medical history including schizophrenia patient only able to dr ink a few small sips of contrast in upright AP imaging. No obvious leak. Patient refused to drink add itional contrast in semiupright along with horizontal positioning. Patient refused further attempts w ith additional contrast in different projections including prone positioning. IMPRESSION: Limited study as detailed above without obvious leak. If further clinical concern remain s present, direct visualization would be warranted.
[2019-10-01] MEDS: ARIPiprazole 10 MG TAB PO SCH (12:05)
[2019-10-01] MEDS: LORazepam 0.5 MG TAB PO SCH (12:05)
--- NOTE | 2019-10-01 12:33 | P.PN ---
Progress Note - Text Progress Note Date: 10/01/19 Interval History: Patient was seen for psychiatric follow-up today. Patient continues to be on the medical floors for pneumomediastinum and possible infection. Patient has been treated with antibiotics and had his barium swallow evaluation today. Patient has not been taking his Abilify thus far by mouth. He was in his room with his mother this morning and was agreeable to speak to functional tester typewriters. Patient appeared to be more verbal today and appeared to have an improvement in his affect. He states that he is continuing to have anxiety but being in the hospital and asked several questions about his condition. Patient was drinking water this morning. He states that he was able to sleep better last night. He continues to endorse auditory hallucinations. Patient was asking questions about his Abilify and also his demand for hearing date. At this time patient denies any suicidal or homical ideations, intent or plan. Patient denies any visual hallucinations and denies any paranoia or delusions. He continues to have difficulties with weakness and his strength in his arms. He denied any pain or any shortness of breath today. Mental Status Exam: General Appearance: Patient appears to be stated age is more awake today, difficult to redirect and appears to be less ill/weak. Patient appears to have improvement in his hygiene and grooming wearing hospital gown Behavior: Patient is calmly lying in bed without any agitated behavior. Difficult to redirect. Speech: Patient's speech is fluent and nonpressured. Soft tone Mood/Affect: Patient reports their mood is "fine", affect is incongruent and anxious Suicidality/Homicidality: Patient denies having any suicidal or homicidal id eation intent or plan. Perceptions: Patient denies any visual hallucinations. He admits to hearing voices. Though content/process: Patient is perseverating on his treatment in the hospital and his medications. Illogical at times mild paranoia. Memory and concentration: AOX3, improving attention span. Judgment and insight: poor, improving mildly Assessment Psychosis unspecified, rule out schizoaffective disorder Generalized anxiety disorder. Plan: -Currently patient DOES NOT meet criteria for inpatient psychiatric transfer as patient is still medically ill, however when patient is medically stable then he can be transferred back to mental health unit for continuation of psychiatric treatment, likely over the weekend if patient begins to tolerate his meals and his medications by mouth. Awaiting barium swallow study results. -Would recommend the following medication changes/additions: Continue with Abilify 10 mg daily for mood stabilization/psychosis. Can use Geodon 20 mg IM twice a day when necessary for agitation -Continue 1:1 sitter for safety -Cannot leave AMA at this time. Patient currently has a pending demand for hearing date scheduled for 10/06/2019 for treatment order. -Will continue to follow along, Please contact with any questions.
--- NOTE | 2019-10-01 13:07 | P.PN ---
Subjective Progress Note Date: 10/01/19 I saw Mr. Greene today in follow-up. The patient remains nothing by mouth. GI has been consult on the case. We are going to attempt to do a barium swallow to rule out the possibility of any esophageal leak as the patient has no mediastinum with subcutaneous emphysema attributed to induce vomiting, retching and gagging. He is currently on room air oxygen. Pulse ox 97%. He is afebrile. He is hemodynamically stable.. A few the initial barium swallow. Psychiatry has been involved in this case. After having elected discussion, the patient accepted to undergo the study. The patient drank only small sips of the contrast. No obvious leak was noted on the barium swallow. The patient refused to drink additional contrast and semiupright along with horizontal positioning. He refused also further attempts including prone positioning. Based on the available films, there is no obvious leak. Objective - Vital Signs Vital signs: Vital Signs Temp 98.2 F 10/01/19 08:00 Pulse 89 10/01/19 12:00 Resp 16 10/01/19 12:00 BP 122/85 10/01/19 12:00 Pulse Ox 97 10/01/19 12:00 Intake & Output 09/30/19 10/01/19 10/01/19 18:59 06:59 18:59 Output Total 300 Balance -300 Output: Urine 300 Other: # Voids 1 - Exam - Constitutional General appearance: Present: cooperative, no acute distress, thin - EENT Eyes: Present: PERRLA - Respiratory Details: Lungs sounds bilaterally. Respirations even, nonlabored. Currently on room air with oxygen saturation 98%. - Cardiovascular Details: S1, S2 present. Regular rate and rhythm, sinus rhythm on telemetry. Palpable peripheral pulses bilaterally. No edema present. No calf pain or tenderness noted. - Gastrointestinal Gastrointestinal Comment(s): Abdomen soft, nontender, nondistended. Active bowel sounds present 4 quadrants. Currently nothing by mouth - Genitourinary Genitourinary Comment(s): Continues to void - Integumentary Integumentary Comment(s): Skin is warm and dry, pale - Neurologic Neurologic: Present: CNII-XII intact - Musculoskeletal Musculoskeletal: Present: gait normal, strength equal bilaterally - Psychiatric Psychiatric: Present: A&O x's 3, the patient, patient has underlying psychosis and he has obvious delusions upper secretion. - - Labs CBC & Chem 7: 09/30/19 07:08 09/30/19 07:08 Assessment and Plan Plan: 1 pneumomediastinum along with a component of subcutanous emphysema, most likely secondary to recurrent emesis and retching and gagging. The barium swallow despite its limitation showed no evidence of any leaks. 2 leukocytosis is resolved 3 Posttraumatic stress disorder 4 psychosis with paranoia 5 anxiety 6 depression Plan Advance diet as tolerated after consulting with GI IV Pepcid Psychiatric follow-up Overall pulmonary status is stable. No need for interventions in regards to his pulmonary issue. He has stable pneumo mediastinum is stable some tennis emphysema secondary to above.
--- NOTE | 2019-10-01 16:19 | P.PN ---
Subjective Progress Note Date: 10/01/19 Principal diagnosis: Pneumomediastinum Patient was seen and examined. No acute events overnight. Patient reports no symptoms. Underwent barium swallow today. Objective - Vital Signs Vital signs: Vital Signs Temp 98.2 F 10/01/19 08:00 Pulse 89 10/01/19 12:00 Resp 16 10/01/19 15:42 BP 122/85 10/01/19 12:00 Pulse Ox 97 10/01/19 12:00 Intake & Output 09/30/19 10/01/19 10/01/19 18:59 06:59 18:59 Intake Total 118 Output Total 300 400 Balance -300 -282 Intake: Oral 118 Output: Urine 300 400 Other: # Voids 1 1 - Exam General: [non toxic], [no distress], [appears at stated age] Derm: [warm], [dry] Head: [atraumatic], [normocephalic], [symmetric] Eyes: [EOMI], [no lid lag], [anicteric sclera] Mouth: [no lip lesion], [mucus membranes moist] Cardiovascular: [S1S2 reg], [tachycardic], [positive posterior tibial pulse bilateral], Lungs: [Decreased breath sounds bilateral], [no rhonchi, no rales] , [no accessory muscle use] Abdominal: [soft], [ nontender to palpation], [no guarding], [no appreciable organomegaly] Ext: [no gross muscle atrophy], [no edema], [no contractures] Neuro: [no focal neuro deficits] Psych: [Alert], [oriented], [appears paranoid] - Labs CBC & Chem 7: 09/30/19 07:08 09/30/19 07:08 Assessment and Plan Assessment: Pneumomediastinum - CT chest with contrast shows confirmation of large amount of pneumomediastinum, confirmation of subcutaneous emphysema in the right subclavicular region - Continue Unasyn for antibiotic coverage - Consult Dr. Asif and Dr. Greawl -Barium swallow shows no leak, GI recommends advancing diet to clear liquids - Telemetry monitoring - O2 at 2 L NC Altered mentation - supprotive care, possibly related to underlying psych disorder Paranoia and psychosis - Abilify Resolved: Leukocytosis [Patient admitted for pneumomediastinum. Barium swallow shows no leak. CT surgery, GI and pulmonology on board. He is pending clinical improvement. Likely DC in 1-2 days.]
[2019-10-01 22:03] LABS: Appearance,Urine Clear (Clear); Bilirubin,Urine Negative (Negative); Blood,Urine Negative (Negative); Color,Urine Yellow; Glucose,Urine (UA) Negative (Negative); Ketones,Urine 3+ (Negative); Leukocyte Esterase,Urine Negative (Negative); Nitrite,Urine Negative (Negative); PH, Urine 6.5 (5.0-8.0); Protein,Urine Trace (Negative); Specific Gravity,Urine 1.024 (1.001-1.035)
[2019-10-02] MEDS: LORazepam 0.5 MG TAB PO SCH ×2 (00:52→07:49)
[2019-10-02] MEDS: AMPICILLIN-SULBACTAM 3 GM in SODIUM CHLORIDE 0.9% 100 ML IVPB SCH ×4 (00:52→16:30)
[2019-10-02] MEDS: CIPROFLOXACIN 0.3% OPHTH SOLN 5 ML BTL RIGHT EYE SCH ×5 (00:52→16:28)
--- NOTE | 2019-10-02 07:48 | XR ---
EXAMINATION TYPE: XR chest 1V portable DATE OF EXAM: 10/02/2019 COMPARISON: 09/30/2019 HISTORY: Abnormal x-ray TECHNIQUE: Single frontal view of the chest is obtained. FINDINGS: There is no focal air space opacity, pleural effusion, or pneumothorax seen. The cardiac silhouette size is within normal limits. The osseous structures are intact. There is abnormal subcu taneous emphysema overlying the right neck and clavicular region. Lucency extending into the upper me diastinum suspicious for pneumocystis mediastinum is similar appearance to the prior exam. IMPRESSION: Findings appear stable suggestive subcutaneous emphysema and pneumomediastinum.
[2019-10-02] MEDS: FAMOTIDINE 20 MG/2 ML VIAL IV SCH (07:49)
[2019-10-02] MEDS: NYSTATIN 100,000 UNIT/ML SUSP 500,000 UNIT/5 ML CUP PO SCH ×3 (07:49→16:30)
[2019-10-02] MEDS: ARIPiprazole 10 MG TAB PO SCH (07:55)
--- NOTE | 2019-10-02 12:06 | P.PN ---
Subjective Progress Note Date: 10/02/19 Principal diagnosis: Pneumomediastinum. Previous medical history of PTSD, depression, psychosis with paranoia and anxiety. The patient was laying in bed this morning in no acute distress. Denies any pain or shortness of breath. Patient participated in his barium swallow yeste rday, however he would only take a few sips. Even though it was a limited study results demonstrates no esophageal leak. He was started on clear liquid diet and has been tolerating that well so far. Objective - Vital Signs Vital signs: Vital Signs Temp 98.3 F 10/02/19 07:39 Pulse 83 10/02/19 07:39 Resp 16 10/02/19 07:39 BP 135/84 10/02/19 07:39 Pulse Ox 98 10/02/19 07:39 Intake & Output 10/01/19 10/02/19 10/02/19 18:59 06:59 18:59 Intake Total 118 Output Total 400 650 Balance -282 -650 Weight 66.6 kg Intake: Oral 118 Output: Urine 400 650 Other: # Voids 1 # Bowel Movements 0 - Constitutional General appearance: Present: cooperative, no acute distress - Respiratory Details: Lungs sounds bilaterally. Respirations even, nonlabored. Currently on room air with oxygen saturation 98%. - Cardiovascular Details: S1, S2 present. Regular rate and rhythm, sinus rhythm on telemetry. Palpable peripheral pulses bilaterally. No edema present. No calf pain or tenderness noted. - Gastrointestinal Gastrointestinal Comment(s): Abdomen soft, nontender, nondistended. Active bowel sounds present 4 quadrants. Tolerating clear liquids - Genitourinary Genitourinary Comment(s): Continues to void - Integumentary Integumentary Comment(s): Skin is warm and dry - Neurologic Neurologic: Present: CNII-XII intact - Musculoskeletal Musculoskeletal: Present: strength equal bilaterally - Psychiatric Psychiatric: Present: A&O x's 3, appropriate affect, intact judgment & insight - Allied health notes Allied health notes reviewed: nursing - Labs CBC & Chem 7: 09/30/19 07:08 09/30/19 07:08 Labs: Abnormal Lab Results - Last 24 Hours (Table) 10/01/19 Range/Units 21:30 Urine Protein Trace H (Negative) Urine Ketones 3+ H (Negative) - Imaging and Cardiology Chest x-ray: report reviewed, image reviewed Assessment and Plan Assessment: 1. Pneumomediastinum 2. Leukocytosis, resolved 3. History of posttraumatic stress disorder 4. Paranoia and psychosis 5. Anxiety 6. History of depression Plan: 1. Barium swallow results reviewed. May allow diet from our standpoint. Continue to monitor tolerance. No surgical intervention from our standpoint. 2. IV Pepcid added 3. Increase activity ambulate as tolerated 4. Mental health management per psychiatry 5. Management of other medical comorbidities per primary care service 6. May transfer back to mental health unit from our standpoint 7. Will see again as needed. Please call us with any further questions. Time with Patient: Greater than 30
--- NOTE | 2019-10-02 12:57 | P.PN ---
Subjective Progress Note Date: 10/02/19 Principal diagnosis: Pneumomediastinum along with component of subcutaneous emphysema secondary to recurrent emesis with retching and gagging. The patient is seen today 10/02/2019 in follow-up on the regular medical floor. He is currently resting comfortably in bed. Awake and alert in no acute distress. Denies any shortness of breath, cough or congestion. Maintaining good O2 saturations in the upper 90s on room air. He's been afebrile. Hemodynamically stable. Chest x-ray reveals stable findings with continued subcutaneous emphysema and pneumomediastinum. Barium swallow did not reveal any evidence of leak. Objective - Vital Signs Vital signs: Vital Signs Temp 98.4 F 10/02/19 11:30 Pulse 86 10/02/19 11:30 Resp 16 10/02/19 11:30 BP 127/76 10/02/19 11:30 Pulse Ox 97 10/02/19 11:30 Intake & Output 10/01/19 10/02/19 10/02/19 18:59 06:59 18:59 Intake Total 118 260 Output Total 400 650 Balance -282 -650 260 Weight 66.6 kg Intake: IV 260 0.9% NS @ 20mL/hr 160 Ampicillin-Sulbactam 3 gm 100 In Sodium Chloride 0.9% 100 ml @ 200 mls/hr IVPB Q6HR [facility] Rx#:[id number] Oral 118 Output: Urine 400 650 Other: # Voids 1 # Bowel Movements 0 - Exam GENERAL EXAM: Alert, active, comfortable in no apparent distress. HEAD: Normocephalic. EYES: Normal reaction of pupils, equal size. NOSE: Clear with pink turbinates. THROAT: No erythema or exudates. NECK: No masses, no JVD. CHEST: No chest wall deformity. LUNGS: Equal air entry with no crackles, wheeze, rhonchi or dullness. CVS: S1 and S2 normal with no audible murmur, regular rhythm. ABDOMEN: No hepatosplenomegaly, normal bowel sounds, no guarding or rigidity. SPINE: No scoliosis or deformity SKIN: No rashes CENTRAL NERVOUS SYSTEM: No focal deficits, tone is normal in all 4 extremities. EXTREMITIES: There is no peripheral edema. No clubbing, no cyanosis. Peripheral pulses are intact. Psychiatric. Alert and oriented 3. Patient has underlying psychosis and has delusions - Labs CBC & Chem 7: 09/30/19 07:08 09/30/19 07:08 Labs: Abnormal Lab Results - Last 24 Hours (Table) 10/01/19 Range/Units 21:30 Urine Protein Trace H (Negative) Urine Ketones 3+ H (Negative) Assessment and Plan Assessment: 1 pneumomediastinum along with a component of subcutanous emphysema, most likely secondary to recurrent emesis and retching and gagging. The barium swallow despite its limitation showed no evidence of any leaks. 2 leukocytosis is resolved 3 Posttraumatic stress disorder 4 psychosis with paranoia 5 anxiety 6 depression Plan The patient was seen and evaluated by Dr. Uri Duncan from the pulmonary standpoint CT services. No plans for surgical intervention Psychiatric follow-up I, the cosigning physician, performed a history & physical examination of the patient. Lungs sounds are clear. Maintaining good O2 saturations in the 90s on room air. I discussed the assessment and plan of care with my nurse practitioner, Alee Ingram. I attest to the above note as dictated by her.
--- NOTE | 2019-10-02 13:46 | P.PN ---
Subjective Progress Note Date: 10/01/19 Principal diagnosis: Pneumomediastinum, nausea and vomiting Patient who is on the psychiatric floor and was found to be inducing to vomit subsequently found to have pneumomediastinum on computed tomography scan. Barium swallow did not show a leak or perforation. Currently tolerating liquid diet. Objective - Vital Signs Vital signs: Vital Signs Temp 97.2 F L 10/01/19 16:00 Pulse 89 10/01/19 16:00 Resp 16 10/01/19 16:00 BP 137/86 10/01/19 16:00 Pulse Ox 97 10/01/19 16:00 Intake & Output 09/30/19 10/01/19 10/01/19 18:59 06:59 18:59 Intake Total 118 Output Total 300 400 Balance -300 -282 Intake: Oral 118 Output: Urine 300 400 Other: # Voids 1 1 # Bowel Movements 0 - Exam On physical examination, patient appears comfortable in no apparent distress. HEAD: Normocephalic, atraumatic. EYES: No scleral icterus. No conjunctival injection. MOUTH: No lesions, tongue midline. NECK: Trachea midline, no gross abnormalities. CHEST: No respiratory distress. ABDOMEN: Soft, thin. Bowel sounds are positive. No organomegaly. No guarding or rigidity. EXTREMITIES: No pedal edema. SKIN: No rashes, no jaundice. NEUROLOGIC: Alert and oriented x3. No focal deficits. - Labs CBC & Chem 7: 09/30/19 07:08 09/30/19 07:08 Assessment and Plan (1) Vomiting Narrative/Plan: Patient who is on the psychiatric floor and was found to be inducing to vomit subsequently found to have pneumomediastinum on computed tomography scan. Barium swallow did not show a leak or perforation. Current Visit: Yes Status: Acute Code(s): R11.10 - VOMITING, UNSPECIFIED SNOMED Code(s): 487296683 (2) Pneumomediastinum Current Visit: Yes Status: Acute Code(s): J98.2 - INTERSTITIAL EMPHYSEMA SNOMED Code(s): 74663947 Plan: Supportive care No plan for endoscopic evaluation at this time Tolerated liquid diet Continue antibiotic therapy Continue monitor CBC, BMP Okay to advance diet as tolerated per surgical service recommendations Thank you for allowing us to participate in the care of the patient, the GI service will stand by, please call us back with any questions or concerns
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
[2019-10-02 17:43] VITALS: BP 113/72; PULSE 85; RESP 18; TEMP 98
== END 2019-10-02 17:47 | disposition still patient (30) | DRG 200 ==
LOC: 3SCARD 13:34
PROVIDERS: ADMIT Internal Medicine; ATTEND Internal Medicine
DX: J98.2 Interstitial emphysema (principal); B37.0 Candidal stomatitis; F22 Delusional disorders; E86.0 Dehydration; H10.9 Unspecified conjunctivitis; F43.10 Post-traumatic stress disorder, unspecified; F41.1 Generalized anxiety disorder; K64.9 Unspecified hemorrhoids; R74.8 Abnormal levels of other serum enzymes; D72.829 Elevated white blood cell count, unspecified; F32.9 Major depressive disorder, single episode, unspecified; R11.2 Nausea with vomiting, unspecified; R50.9 Fever, unspecified; Z79.899 Other long term (current) drug therapy; Z53.29 Procedure and treatment not carried out because of patient's decision for other reasons; Z91.013 Allergy to seafood; Z82.49 Family history of ischemic heart disease and other diseases of the circulatory system; Z82.5 Family history of asthma and other chronic lower respiratory diseases
CPT/HCPCS: 71045; 71260; 74220; 80048; 80053; 81003; 82550; 83735; 84100; 85025; 85027; 85610

== ENCOUNTER 2019-10-02 18:00 | Inpatient (IN) | payer MEDICAID ==
[2019-10-02] MEDS ORDERED: ACETAMINOPHEN TAB 325 MG TAB PO PRN (18:16)
[2019-10-02] MEDS ORDERED: LORazepam 0.5 MG TAB PO PRN (18:16)
[2019-10-02] MEDS ORDERED: MAGNESIUM HYDROXIDE 2,400 MG/10 ML CUP PO PRN (18:16)
[2019-10-02] MEDS ORDERED: MAG HYDROX/AL HYDROX/SIMETH 30 ML CUP PO PRN (18:16)
[2019-10-03 04:09] LABS: Cholesterol 129 mg/dL (<200); HDL Cholesterol 26 mg/dL (40-60); LDL Cholesterol,Calculated 87 mg/dL (0-99); Triglycerides 79 mg/dL (<150)
[2019-10-03] MEDS ORDERED: ARIPiprazole 10 MG TAB PO SCH (09:00)
--- NOTE | 2019-10-03 10:33 | P.HP ---
Psychiatric H&P - . H&P Date: 10/03/19 History & Physical: Allergies Allergy/AdvReac Type Severity Reaction Status Date / Time shelfish AdvReac Swelling Uncoded 09/25/19 05:48 Vital Signs Temp 97.3 F L 10/03/19 07:26 Pulse 97 10/03/19 07:26 Resp 16 10/03/19 07:26 BP 123/77 10/03/19 07:26 Pulse Ox 99 10/03/19 07:26 Intake & Output 10/02/19 10/03/19 10/03/19 18:59 06:59 18:59 Weight 66.6 kg 65.941 kg Laboratory Last Values Triglycerides 79 mg/dL (<150) 09/30/19 07:08 Cholesterol 129 mg/dL (<200) 09/30/19 07:08 LDL Cholesterol, Calc 87 mg/dL (0-99) 09/30/19 07:08 HDL Cholesterol 26 mg/dL (40-60) L 09/30/19 07:08 10/03/19 10:14 IDENTIFYING DATA: A 33-year-old single male who currently lives with his mother and has a history of PTSD anxiety and paranoia. HISTORY OF PRESENT ILLNESS: Patient was initially discharged on 09/17/2019 with diagnoses of unspecified psychosis and generalized anxiety disorder. His discharge medications included Abilify 10 mg daily. The patient stated that he became increasingly anxious when he returned to his parent's home. He talked about developing a belief that people were watching him and trying to "get him." He believed that people were hiding in the [place] around his parents home. He then spent 2 or 3 days at his grandmother's house believing that anxiety and paranoia was due to living at his parent's home. However the anxiety and paranoia continued and worsened to the point where she became afraid to eat or drink fluids. He developed a belief that both the water and food were poisoned. He alleged that he has not eaten and only drank "a little bit" of water since his discharge. Patient was admitted once again to the mental health unit for psychosis/paranoia along with anxiety and was restarted on his Abilify by mouth. Patient was noted to be withdrawn on the unit and uncooperative and also having a lack of appetite. Patient remained in a position and refused to get out of bed for almost 3 days while he was on the mental health unit and was not taking his medications. Patient was seen by wood veneer taper who ordered a chest x-ray which showed pneumomediastinum and subcutaneous emphysema. Patient had a computed tomography scan of his chest which showed confirmation of pneumomediastinum and did not show any pneumothorax or displaced fractures. Patient had a barium swallow evaluation on the medical floors which did not show an esophageal leak. Patient was treated with antibiotics as patient had SIRS and patient gradually recovered with hydration on the medical floors and was then transferred back to the mental health unit on 10/02/2019. Patient was seen in his room today by personal lines underwriter and refused to leave his room today. Patient appeared to be needy and demanding more attention from personal lines underwriter and nurses. He continues to have poor insight into his medications and was demanding discharge. He states that he has been taking his Abilify for his anxiety and endorses significant paranoia at this time. Patient claims that he does not want to sign the release of information to speak with his mother because "my paranoia is bad". He claims that his mood is "fine" and admits to poor sleep. He denied any suicidal or homicidal ideations intent or plan and denied any auditory or visual hallucinations. PAST PSYCHIATRIC HISTORY: This is his sixth hospitalization. His first admitted to a psychiatric facility admission when he was 16 years old. He talked about having been hospitalized for 2-1/2 pounds psychiatric facility in [place] in 2019. Patient was on Abilify 10 mg daily. He is active with [facility]. PAST MEDICAL HISTORY: He denied history of major medical problems. ALLERGIES: NO KNOWN DRUG ALLERGIES SUBSTANCE USE HISTORY:. He denied history of substance use and substance use problems. FAMILY PSYCHIATRIC/SUBSTANCE USE HISTORY: Denies LEGAL HISTORY: Denies SOCIAL HISTORY: He was born and raised in [place] to an intact family. He graduated from high school. He has held intermittent unskilled jobs. He lived briefly in [place] in 2019. No back to [place] in March of this year. He has no income MENTAL STATUS EXAM: General Appearance: Patient appears to be stated age is alert, anxious/paranoid, difficult to redirect. Patient appears to have improving hygiene and grooming wearing hospital gown with poor eye contact. Behavior: Patient is calmly lying in bed without any agitated behavior. Difficult to redirect. Anxious/paranoid. Speech: Patient's speech is fluent and nonpressured. Demanding Mood/Affect: Patient reports their mood is "fine", affect is incongruent Suicidality/Homicidality: Patient denies having any suicidal or homicidal ideation intent or plan. Perceptions: Patient denies any visual hallucinations and denies any auditory hallucinations Though content/process: Patient is perseverating on attention, and focused on getting a sitter. Illogical at times paranoia. Memory and concentration: AOX2, he knows that it is September 2019 however does not know the specific date, poor attention span. Judgment and insight: poor IMPRESSIONS: Psychosis unspecified, rule out schizoaffective disorder Generalized anxiety disorder. PLAN: -Patient is admitted under involuntary status to [facility]HU for stabilization of psychiatric symptoms and safety. Patient signed adult voluntary form and med ication consent and is placed in patient's chart. Patient is currently awaiting demand for hearing date set for 10/06/2019. -Medications : Will start patient on Abilify 15 mg daily for mood stabilizat ion/psychosis. Will add on trazodone 50 mg daily at bedtime for insomnia. -Ativan and Geodon PRN for agitation/aggression -Patient was informed of the risks, benefits and side effects of the medication and patient verbally consented to taking the medications. Patient signed med consent form and was placed in chart. -Internal Medicine consult to perform medical evaluation and physical. -NRT -not needed as patient does not smoke. -SW on board for discharge planning. Encourage patient to participate in groups to work on coping skills. Currently awaiting demand for hearing date set for 10/06/2019.
[2019-10-03] MEDS ORDERED: ARIPiprazole 5 MG TAB PO ONE (10:45)
[2019-10-03] MEDS: LORazepam 1 MG TAB PO PRN (10:52)
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
[2019-10-03] MEDS: AMOXIC-POT CLAV 875-125MG 1 EACH TAB PO SCH (19:58)
[2019-10-03] MEDS ORDERED: ZIPRASIDONE 20 MG CAP PO PRN (20:00)
[2019-10-03] MEDS ORDERED: ZIPRASIDONE 40 MG CAP PO PRN (20:00)
[2019-10-04] MEDS: AMOXIC-POT CLAV 875-125MG 1 EACH TAB PO SCH ×2 (08:37→22:27)
[2019-10-04] MEDS ORDERED: ARIPiprazole 15 MG TAB PO SCH (09:00)
[2019-10-04 09:26] LABS: Hemoglobin A1C 4.7 % (4.0-6.0)
--- NOTE | 2019-10-04 09:34 | XR ---
EXAMINATION TYPE: XR chest 1V portable DATE OF EXAM: 10/04/2019 CLINICAL HISTORY: Pneumomediastinum TECHNIQUE: Portable frontal view of the chest obtained COMPARISON: 10/02/2019 chest radiograph FINDINGS: There is decreased subcutaneous emphysema of the right upper thorax and mildly decreased p neumomediastinum no definitive pneumopericardium. Versus 10/02/2019 comparison. The cardiomediastinal s ilhouette is within normal limits for size. Pulmonary vasculature is normal. There is no focal air sp vishal opacity, pleural effusion, or pneumothorax seen. IMPRESSION: Persistent pneumomediastinum and subcutaneous emphysema is mildly decreased versus 10/02/19 20 comparison.
[2019-10-04] MEDS ORDERED: traZODone HCL 50 MG TAB PO PRN (09:53)
--- NOTE | 2019-10-04 10:02 | P.PN ---
Progress Note - Text Progress Note Date: 10/04/19 Interval History: Patient was seen in his room sitting on the side of his bed and was directable and agreeable to speak with advertising copywriter however again continues to refuse to leave his room. Patient continues to endorse paranoid thoughts and anxiety and lack of trust of other people which is the reason why he claims he has not been leaving his room. Patient continues to be persistent and needy and demanding several things from advertising copywriter. Patient claims that he is doing "better today" with regards to his anxiety and asked several medication questions. He states that he was able to sleep last night however had difficulty initiating sleep. He asked advertising copywriter if he could speak with his mother today. Patient has been refusing to go to groups due to his paranoia. He did not report any side effects today. He states he has a fair appetite. At this time patient denies any suicidal or homical ideations, intent or plan. Patient denies any auditory, visual hallucinations and denies any paranoia or delusions. Patient denies any side effects from the medications and has been compliant with meds. Mental Status Exam: General Appearance: Patient appears to be stated age is alert, anxious/paranoid, improving mildly. Patient appears to have improving hygiene and grooming wearing hospital gown Behavior: Patient is calmly lying in bed without any agitated behavior. Difficult to redirect. Anxious/paranoid which is improving mildly Speech: Patient's speech is fluent and nonpressured. Demanding and needy Mood/Affect: Patient reports their mood is "better a bit", affect is incongruent Suicidality/Homicidality: Patient denies having any suicidal or homicidal ideation intent or plan. Perceptions: Patient denies any visual hallucinations and denies any auditory hallucinations Though content/process: Patient is perseverating on attention, and focused on getting a sitter. paranoia. Memory and concentration: AOX3, improving attention span Judgment and insight: poor, improving mildly Assessment Schizoaffective disorder Generalized anxiety disorder. Plan: -Patient continues to meet criteria for inpatient psychiatric admission for symptom stabilization and safety. Patient is currently awaiting demand for hearing date set for 10/06/2019. -Medications: Increased Abilify to 20 mg daily for mood stabilization/psychosis. I added trazodone 50 mg daily at bedtime when necessary for insomnia. -Reviewed vital signs and lab work. -Chest x-ray completed on 10/04/2019 shows persistent pneumomediastinum and subcutaneous emphysema is mildly decreased when compared to the previous study on 10/02/2019. -When necessary Ativan and Geodon for agitation/aggression. -NRT -not needed as patient does not smoke. -SW on board for discharge planning. Encouraged the patient to participate in milieu. Currently awaiting demand for hearing date set for 10/06/2019.
[2019-10-04] MEDS: ZIPRASIDONE 20 MG VIAL IM PRN (11:20)
[2019-10-05] MEDS: AMOXIC-POT CLAV 875-125MG 1 EACH TAB PO SCH ×2 (08:49→20:49)
--- NOTE | 2019-10-05 10:10 | P.PN ---
Progress Note - Text Progress Note Date: 10/05/19 Interval History: Patient was seen in his room laying on his bed and was directable and agreeable to speak after being awoken by staff writer however he again continues to refuse to leave his room. He continues to state that he does not feel comfortable leaving the room and endorses paranoia towards others. He spoke about wanting to use staff writer's cell phone to call his mother. He again asked for a one-to-one sitter today. Patient continues to be persistent and needy and demanding several things from staff writer. Patient claims that he is doing "good today" and also denied having any anxiety however soon after began speaking about his anxiety towards other people. He states that he was able to sleep last night well. He asked staff writer if he could speak with his mother today once again. Patient has been refusing to go to groups. He did not report any side effects today. He states he has a fair appetite. Patient was agreeable to start Zoloft for his anxiety/mood. At this time patient denies any suicidal or homical ideations, intent or plan. Patient denies any auditory, visual hallucinations and denies any paranoia or delusions. Patient denies any side effects from the medications and has been compliant with meds. Mental Status Exam: General Appearance: Patient appears to be stated age is alert, anxious/paranoid, improving mildly. Patient appears to have improving hygiene and grooming wearing hospital gown Behavior: Patient is calmly lying in bed without any agitated behavior. Difficult to redirect. Anxious/paranoid which is improving mildly Speech: Patient's speech is fluent and nonpressured. Demanding and needy Mood/Affect: Patient reports their mood is "better", affect is incongruent and appears to be anxious. Suicidality/Homicidality: Patient denies having any suicidal or homicidal ideation intent or plan. Perceptions: Patient denies any visual hallucinations and denies any auditory hallucinations Though content/process: Patient is perseverating on attention, neediness and focused on getting a sitter. paranoia. Memory and concentration: AOX3, improving attention span Judgment and insight: poor Assessment Schizoaffective disorder Generalized anxiety disorder. Plan: -Patient continues to meet criteria for inpatient psychiatric admission for symptom stabilization and safety. Patient is currently awaiting demand for hearing date set for 10/06/2019. -Medications: Continue Abilify to 20 mg daily for mood stabilization/psychosis. Continue with trazodone 50 mg daily at bedtime when necessary for insomnia. Added Zoloft 50 mg daily for mood/anxiety -Reviewed vital signs and lab work. -Chest x-ray completed on 10/04/2019 shows persistent pneumomediastinum and subcutaneous emphysema is mildly decreased when compared to the previous study on 10/02/2019. -When necessary Ativan and Geodon for agitation/aggression. -NRT -not needed as patient does not smoke. -NICOLE on board for discharge planning. Encouraged the patient to participate in milieu. Currently awaiting demand for hearing date set for 10/06/2019.
[2019-10-05] MEDS: SERTRALINE 50 MG TAB PO SCH (10:59)
[2019-10-05] MEDS: LORazepam 1 MG TAB PO PRN (11:24)
[2019-10-05] MEDS: ZIPRASIDONE 20 MG VIAL IM PRN (12:10)
[2019-10-06] MEDS: LORazepam 1 MG TAB PO PRN (00:18)
[2019-10-06] MEDS: AMOXIC-POT CLAV 875-125MG 1 EACH TAB PO SCH ×2 (07:49→20:22)
[2019-10-06] MEDS: SERTRALINE 50 MG TAB PO SCH (07:49)
[2019-10-06] MEDS: PALIPERIDONE 3 MG TAB.ER.24 PO SCH (09:36)
--- NOTE | 2019-10-06 09:57 | P.PN ---
Progress Note - Text Progress Note Date: 10/06/19 Interval History: Patient was seen wandering the hallways today near the nurse's desk and was pe rsistent to speak with conventional underwriter this morning. Patient entered into conventional underwriter's office and sat in a chair further distally from conventional underwriter near the door and appeared to be fairly anxious. He spoke about not being able to talk other people on the unit and mentioned that "they might try to kill me". He requested several times that conventional underwriter transfer him to the medical floors "because I can be with my mom there". He also states that he is feeling unsafe on the unit and appeared to be paranoid. He states that he was able to sleep fairly last night. He claims he has not been going to groups. He states that his mood is "fine". He did not report any side effects today. He states he has poor appetite today. Patient refused his Zoloft and Abilify this morning and was resistant to have his medications changed today claiming that "I don't want them anymore". At this time patient denies any suicidal or homical ideations, intent or plan. Patient denies any auditory, visual hallucinations. Mental Status Exam: General Appearance: Patient appears to be stated age is alert, anxious/paranoid, uncooperative and needy. Patient appears to have improving hygiene and grooming wearing hospital gown Behavior: Patient is calmly lying in bed without any agitated behavior. Difficult to redirect. Anxious/paranoid Speech: Patient's speech is fluent and nonpressured. Demanding and needy Mood/Affect: Patient reports their mood is "ok", affect is incongruent and appears to be anxious. Suicidality/Homicidality: Patient denies having any suicidal or homicidal ideation intent or plan. Perceptions: Patient denies any visual hallucinations and denies any auditory hallucinations Though content/process: Patient is perseverating on attention, neediness and focused on getting transferred to the medical floors. paranoia. Memory and concentration: AOX3, improving attention span Judgment and insight: poor Assessment Schizoaffective disorder Generalized anxiety disorder. Plan: -Patient continues to meet criteria for inpatient psychiatric admission for symptom stabilization and safety. Patient is currently awaiting demand for hearing date set for 10/06/2019. -Medications: Discontinued Abilify due to ineffectiveness and will be replacing with paliperidone by mouth 3 mg daily for psychosis/mood stabilization. Continue with trazodone 50 mg daily at bedtime when necessary for insomnia. Continue with Zoloft 50 mg daily for mood/anxiety -Chest x-ray completed on 10/04/2019 shows persistent pneumomediastinum and subcutaneous emphysema is mildly decreased when compared to the previous study on 10/02/2019. -When necessary Ativan and Geodon for agitation/aggression. -NRT -not needed as patient does not smoke. -SW on board for discharge planning. Encouraged the patient to participate in milieu. Currently awaiting demand for hearing date set for 10/06/2019.
[2019-10-06] MEDS ORDERED: LORazepam 2 MG/ML INJ IM SCH (21:08)
[2019-10-06] MEDS: ZIPRASIDONE 20 MG VIAL IM PRN (21:15)
[2019-10-06] MEDS ORDERED: LORazepam 2 MG/ML INJ IM PRN (22:12)
[2019-10-07] MEDS: AMOXIC-POT CLAV 875-125MG 1 EACH TAB PO SCH (09:33)
[2019-10-07] MEDS: SERTRALINE 50 MG TAB PO SCH (09:33)
[2019-10-07] MEDS: PALIPERIDONE 3 MG TAB.ER.24 PO SCH ×2 (09:33→20:26)
--- NOTE | 2019-10-07 10:17 | P.PN ---
Progress Note - Text Progress Note Date: 10/07/19 Interval History: Patient was seen wandering the hallways today near the nurse's desk after taking his medications this morning and was directable and agreeable to speak to account underwriter in the office. Patient continues to appear to be anxious and somewhat paranoid. He spoke yesterday about speaking to the supreme court judge and claims that "he didn't say anything much to me". He stated that he asked the supreme court judge yesterday to have him transferred to the ICU so he could get more care there. He claims that he is continuing to feel paranoid and states that he heard other people on the unit talk about possibly killing him. Patient claims that he feels mildly more comfortable in the unit and trusts the staff and certain people. He appeared to be fairly anxious today while sitting in the chair speaking with account underwriter and when asked about his anxiety patient denies having any today. He continues to be needy and demanding or attention from account underwriter and other staff members. Continues to request to have a sitter with him. He states that his mood is "fine". He did not report any side effects today. He states he has poor appetite today. He claims that he would try to go to groups today. At this time patient denies any suicidal or homical ideations, intent or plan. Patient denies any auditory, visual hallucinations. Mental Status Exam: General Appearance: Patient appears to be stated age is alert, anxious/paranoid, more cooperative today however continues to be needy. Patient appears to have improving hygiene and grooming wearing hospital gown Behavior: Patient is calmly lying in bed without any agitated behavior. Anxious/paranoid Speech: Patient's speech is fluent and nonpressured. Demanding and needy Mood/Affect: Patient reports their mood is "ok", affect is incongruent and appears to be anxious. Suicidality/Homicidality: Patient denies having any suicidal or homicidal ideation intent or plan. Perceptions: Patient denies any visual hallucinations and denies any auditory hallucinations Though content/process: Patient is perseverating on attention, neediness and focused on getting transferred to the medical floors. paranoia. Memory and concentration: AOX3, improving attention span Judgment and insight: poor Assessment Schizoaffective disorder Generalized anxiety disorder. Plan: -Patient continues to meet criteria for inpatient psychiatric admission for symptom stabilization and safety. Patient had court hearing on 10/06/2019 and was placed on a court order. Will await the court order from the courts. -Medications: Increased paliperidone by mouth 3 mg BID for psychosis/mood stabilization. Continue with trazodone 50 mg daily at bedtime when necessary for insomnia. Continue with Zoloft 50 mg daily for mood/anxiety -Chest x-ray completed on 10/04/2019 shows persistent pneumomediastinum and subcutaneous emphysema is mildly decreased when compared to the previous study on 10/02/2019. -When necessary Ativan and Geodon for agitation/aggression. -NRT -not needed as patient does not smoke. -SW on board for discharge planning. Encouraged the patient to participate in milieu. We'll continue to work with patient and evaluate for improvement psychiatrically to prepare for discharge.
[2019-10-08] MEDS: PALIPERIDONE 3 MG TAB.ER.24 PO SCH (07:58)
[2019-10-08] MEDS: SERTRALINE 50 MG TAB PO SCH ×2 (09:19→09:38)
--- NOTE | 2019-10-08 10:11 | P.PN ---
Progress Note - Text Progress Note Date: 10/08/19 Interval History: Patient was seen sitting outside of typewriters functional tester's office this morning and was persi stent in speaking with typewriters functional tester in the office. Patient continues to appear to be anxious and somewhat paranoid asking several questions for typewriters functional tester. However this appears to be improving mildly today and patient was shaking lasts and was able to sit closer to typewriters functional tester. Patient asked typewriters functional tester if he could speak with his mother over the phone and patient out his mother with the office phone and had her on speaker. Patient's mother asked several questions about his medications and overall stated that patient is "doing much better on this medication" and also stated that she was given a visit over the weekend. Patient appeared to be nervous speaking with mother and asked several questions about "what's going on over there I can hear noises". Patient's paranoia has been mildly decreasing. Patient claims that he feels mildly more comfortable in the unit and trusts the staff and certain people. He continues to be needy and demanding or attention from typewriters functional tester and other staff members. He states that his mood is "ok". He did not report any side effects today. He states he has improving appetite today. He claims that he went to a group yesterday for a small amount of time and then left. At this time patient denies any suicidal or homical ideations, intent or plan. Patient denies any auditory, visual hallucinations. Mental Status Exam: General Appearance: Patient appears to be stated age is alert, anxious/paranoid, more cooperative today, mildly improving. Patient appears to have improving hygiene and grooming wearing hospital gown Behavior: Patient is calmly lying in bed without any agitated behavior. Anxious/paranoid, mildly improving Speech: Patient's speech is fluent and nonpressured. Demanding and needy Mood/Affect: Patient reports their mood is "ok", affect is incongruent and appears to be anxious, mildly improving Suicidality/Homicidality: Patient denies having any suicidal or homicidal ideation intent or plan. Perceptions: Patient denies any visual hallucinations and denies any auditory hallucinations Though content/process: Patient is perseverating on attention, neediness and focused on his medications and attention. paranoia. Memory and concentration: AOX3, improving attention span Judgment and insight: poor, improving mildly Assessment: Schizoaffective disorder Generalized anxiety disorder Plan: -Patient continues to meet criteria for inpatient psychiatric admission for symptom stabilization and safety. Patient had court hearing on 10/06/2019 and was placed on a court order. Will await the court order from the courts. -Medications: Increased paliperidone by mouth 3 mg HS + 6mg daily for psychosis/mood stabilization. Continue with trazodone 50 mg daily at bedtime when necessary for insomnia. Increased Zoloft 100 mg daily for mood/anxiety -Chest x-ray completed on 10/04/2019 shows persistent pneumomediastinum and subcutaneous emphysema is mildly decreased when compared to the previous study on 10/02/2019. -When necessary Ativan and Geodon for agitation/aggression. -NRT -not needed as patient does not smoke. -SW on board for discharge planning. Encouraged the patient to participate in milieu. We'll continue to work with patient and evaluate for improvement psychiatrically to prepare for discharge.
[2019-10-08] MEDS ORDERED: PALIPERIDONE 3 MG TAB.ER.24 PO SCH (21:00)
[2019-10-09] MEDS: LORazepam 1 MG TAB PO PRN ×3 (01:28→23:21)
[2019-10-09] MEDS: PALIPERIDONE 6 MG TAB.ER.24 PO SCH (08:08)
[2019-10-09] MEDS: SERTRALINE 100 MG TAB PO SCH (08:08)
--- NOTE | 2019-10-09 10:22 | PN ---
DATE OF SERVICE: 10/09/2019 PROGRESS NOTE CHIEF COMPLAINT: The patient was admitted for psychosis with paranoid thinking. He had high anxiety. He had a recent discharge from this facility, though was not taking his medications consistently. INTERVAL HISTORY: Patient has been doing fair. He had a quiet evening last night. Mostly he stays in his room. He will come out in the day area. He does not interact with others. He said he slept fairly well last night, though staff noted that he only slept about 4 or 5 hours. Today he is up. When I saw him he was sitting near the nursing station on the floor. He paid attention to me coming into the unit. He agreed with Dr. Seaman documentation from yesterday that things seem to be slowly improving. He also confirmed that his mother saw things as better for him as well. He does have a lot of shaking in his legs which he says is just his nature. It is unclear whether or not he may have some akathisia as well. He said that overall he has not had any problems with his medications. He feels his mood is a little better and anxiety is a little less. MENTAL STATUS: Patient sat with shaking legs though otherwise had a very stiff posture. He had a staring gaze. He answered questions with 1 or 2 word responses. He talked in a soft almost airy voice at times. His affect was constricted and he had a very tense manner. His mood was down. He appeared moderately distressed. He made comments about paranoid thinking and at one point, asked if I could turn the computer screen so that he could see what was showing up on the screen, even though he was far away and could not read the words. He seemed to be satisfied just with seeing the screen. He voiced no thoughts of harm to self or others. Cognition was clear. ASSESSMENT: I will continue the current diagnosis and treatment plan. I will continue psychotropic medications the same. We discussed the option of the long-acting injectable, which the patient said would be a consideration. He did not really offer a reason as to why he did not take the Abilify consistently after his last discharge. We will focus on stabilization and discharge planning. MMALLANL / RICHARN: [id number] / VAUGHN
[2019-10-09] MEDS: haloperidoL 5 MG TAB PO SCH (22:41)
[2019-10-09] MEDS: PALIPERIDONE 3 MG TAB.ER.24 PO SCH ×2 (22:41→23:21)
[2019-10-10] MEDS: SERTRALINE 100 MG TAB PO SCH ×3 (08:43→11:05)
[2019-10-10] MEDS: haloperidoL 5 MG TAB PO SCH ×5 (08:43→21:08)
[2019-10-10] MEDS: LORazepam 1 MG TAB PO PRN ×2 (08:43→20:32)
[2019-10-10] MEDS: PALIPERIDONE 6 MG TAB.ER.24 PO SCH ×3 (08:44→11:05)
[2019-10-10 09:14] LABS: Basophils # (A) 0.1 k/uL (0-0.2); Basophils % (A) 1 %; Eosinophils # (A) 0.1 k/uL (0-0.7); Eosinophils % (A) 1 %; HCT 43.6 % (39.0-53.0); HGB 14.8 gm/dL (13.0-17.5); Lymphocytes # (A) 1.5 k/uL (1.0-4.8); Lymphocytes % (A) 27 %; MCH 27.7 pg (25.0-35.0); MCHC 33.8 g/dL (31.0-37.0); Mean Platelet Volume 8.2; Monocytes # (A) 0.5 k/uL (0-1.0); Monocytes % (A) 8 %; Neutrophils # (A) 3.3 k/uL (1.3-7.7); Neutrophils % (A) 59 %; Platelet Count 196 k/uL (150-450); RBC 5.32 m/uL (4.30-5.90); RDW 13.4 % (11.5-15.5); WBC 5.5 k/uL (3.8-10.6)
[2019-10-10 09:43] LABS: ALT 10 U/L (4-49); AST 17 U/L (17-59); African American GFR (CKD) >90 (>60 ml/min/1.73 sqM); Albumin 4.1 g/dL (3.5-5.0); Alkaline Phosphatase 65 U/L (38-126); Anion Gap 10 mmol/L; Blood Urea Nitrogen 11 mg/dL (9-20); Calcium 9.2 mg/dL (8.4-10.2); Carbon Dioxide 26 mmol/L (22-30); Chloride 101 mmol/L (98-107); Glucose 102 mg/dL (74-99); Non-African American GFR(CKD) >90 (>60 ml/min/1.73 sqM); Potassium 3.5 mmol/L (3.5-5.1); Sodium 137 mmol/L (137-145); Total Bilirubin 0.9 mg/dL (0.2-1.3); Total Protein 6.3 g/dL (6.3-8.2)
[2019-10-10] MEDS ORDERED: HALOPERIDOL LACTATE 5 MG/ML 1 ML VIAL IM PRN ×2 (10:25→10:28)
--- NOTE | 2019-10-10 16:17 | PN ---
PROGRESS NOTE DATE OF SERVICE: 10/10/2019 CHIEF COMPLAINT: The patient was admitted for psychosis with paranoid thinking. He had high anxiety. He had a recent discharge from this facility, though was not taking his medications consistently. INTERVAL HISTORY: The patient continues doing about the same. He is very withdrawn. Yesterday evening he mostly isolated. He will come out in the day area, though he does not really interact much with others. He does seem like he can be comfortable sitting with someone, though it never appears that he really engages in any conversation with others. He slept fairly well last night. Today, he has been up. He has spent most of the time in his room. He chooses not to attend groups. When I talked to him today, he still continues with quite disorganized thoughts. He will seem to ask questions, though in the midst of asking the question he will pause and seems as if he loses connection to his thoughts. I noted that he did not take his medications last evening. He initially said he did. I asked him to go with me to the nursing station so we can review that and he declined to do that, then he asked if he needed to take medications. I discussed with him that he has a court order and is required to follow through with treatment. I noted that we have added Haldol as I did yesterday. I noted that we can give Haldol IM if he chooses not to take oral medication. For the most part, the patient seems to be very disorganized in his thoughts and is able to communicate very little. He continues to isolate as his primary behavior. He tolerates his psychotropic medications. It is noted that he did not get his evening medications though has an IM backup if he chooses not to take orals. MENTAL STATUS: Patient was in his room and elected to stay in his room rather than come down to the office. He sat up in bed. He gave fairly good eye contact, though at times it was if he had a staring gaze. He would respond to a few questions with 1 or 2 word responses. At other times he would start saying something and then seemed to have thought blocking. He said very little overall. He had a confused manner. He repeated at least 3 times the question of did he need to take medications. He did not indicate any issues or concerns to be addressed. His affect was flat. His mood depressed. He had a bewildered look. He has significant thought blocking, likely secondary to psychotic thinking. It was difficult to assess thoughts of harm. He was oriented to his circumstances and surroundings. ASSESSMENT: I will continue the current diagnosis and treatment plan. I will continue psychotropic medications the same. I did indicate to the patient that if he chooses not to take oral medications, which are strongly recommended and implied, that he must take them based on his court-ordered status. We do have IM backups that he would be required to accept. We will continue to focus on stabilization and discharge planning. SHIRLENE / GAURAV: [id number] /
[2019-10-10] MEDS: PALIPERIDONE 3 MG TAB.ER.24 PO SCH ×3 (20:33→21:13)
--- NOTE | 2019-10-11 09:18 | XR ---
EXAMINATION TYPE: XR chest 2V DATE OF EXAM: 10/11/2019 COMPARISON: 10/04/2019 HISTORY: Chest pain TECHNIQUE: Frontal and lateral views of the chest are obtained. FINDINGS: There is no focal air space opacity. No evidence for pneumothorax. No pleural effusion. The cardiac silhouette size is within normal limits. The osseous structures are grossly intact. IMPRESSION: 1. No acute cardiopulmonary process.
[2019-10-11] MEDS: haloperidoL 5 MG TAB PO SCH ×2 (10:03→21:52)
[2019-10-11] MEDS: SERTRALINE 100 MG TAB PO SCH (10:04)
[2019-10-11] MEDS: PALIPERIDONE 6 MG TAB.ER.24 PO SCH (10:04)
--- NOTE | 2019-10-11 10:34 | PN ---
PROGRESS NOTE DATE OF SERVICE: 10/11/2019 CHIEF COMPLAINT: The patient was admitted for psychosis and paranoid thinking. He had high anxiety. He had a recent discharge from this facility, though was not taking his medications consistently. INTERVAL HISTORY: The patient continues about the same. He is quite withdrawn. He spent most of last evening in his room. He will barely interact when staff approach him. He may come out in the day area and wander a little. He seems to walk in a somewhat bewildered manner where he walks slow and does not pay too much attention to things going on around him. He does not interact with others. He chooses not to attend groups. He slept well last night. Today he has been up. He continues to be mostly in his room. I did see him when he came down for morning medications. It is noted that yesterday evening he declined to take oral medications, though did receive IM Haldol. So far this morning, he has declined to take his oral medications. At this point, he is not showing any difficulties with receiving the IM medications as far as stan effects or difficulties. he does not seem to show any problem with movement disorder. MENTAL STATUS EXAM: Patient gave fair eye contact. He walked slowly. He chose not to come to the office, though he did talk to me as we walked down the edward to his room. It was noteworthy that he responded to questions in a little more fluid manner without the latency in responses. He had just a slight increase in intonation in his voice. His affect was constricted. His mood reserved. He appeared moderately distressed. He continues to show signs of thought disorder. It is difficult to assess for thoughts of harm. ASSESSMENT: I will continue the current diagnosis and treatment plan. We will continue to encourage the patient towards taking oral medications. Whether or not he is showing some slight degree of improvement based on how he presented this morning remains to be seen. I may consider going up on his IM Haldol as he continues to show significant signs of thought disorder. We will focus on stabilization and discharge planning. SHIRLENE / GAURAV: [id number] /
[2019-10-12] MEDS: SERTRALINE 100 MG TAB PO SCH (10:09)
[2019-10-12] MEDS: PALIPERIDONE 6 MG TAB.ER.24 PO SCH (10:09)
[2019-10-12] MEDS: haloperidoL 5 MG TAB PO SCH ×2 (13:22→20:02)
--- NOTE | 2019-10-12 14:56 | PN ---
PROGRESS NOTE DATE OF SERVICE: 10/12/2019. CHIEF COMPLAINT: The patient was admitted for psychosis with paranoid thinking. He had high anxiety. He had a recent discharge from this facility, though was not taking his medications consistently. INTERVAL HISTORY: The patient continues to do the same. He is very withdrawn. He stays in his room. He will lay in bed for hours at a time. He does not necessarily sleep. When staff come in, he is awake and will respond to staff, though generally only gives 1 or 2 word responses. He has only been eating minimally. He stayed in bed much of the evening last night. Today he continues to be in bed. He has been taking oral medications. There was an issue since that mother communicated to staff. There was a question of concern about Haldol causing hallucinations and psychotic symptoms. I telephoned the mother and had an extensive discussion with mother. She indicates that he was in another psychiatric facility. She said he had a 1 time shot of Haldol and that he had a severe reaction where he was very delusional. When I reviewed the details of this, mother indicated that it was highly likely that he was in an agitated state as the reason for him getting a 1 time dose of Haldol. We discussed that it was likely that he was psychotic and continued to have psychotic thinking after receiving the Haldol. Mother indicated in his history that he started showing symptoms around age 15 with thought disorder and paranoia. He has had a number of hospitalizations at other places including in [place]. I was not able to get all of the details regarding that. She indicates that for the most part, he has fairly persistent symptoms of paranoia. He can have episodes where he will seem to do fine, though is not uncommon that he can quickly show paranoid thinking when he is in situations where he may feel more safe. Mother suggested that was likely his recent situation where he presented to the doctors on his recent admission that everything was fine and as soon as he left the hospital and got to a family's home, he started expressing paranoid symptoms which then regressed into disordered behavior. He believed he was being poisoned and stopped eating or drinking water. He does have persistent paranoia and along with that has episodes of auditory hallucinations. Mother indicates that it has not been clear that he actually has had an established diagnosis of schizophrenia. For the patient's part today, he did not provide any real responses to questions. He was reluctant to get out of bed to go eat at lunch. He did take his medications this morning. He did say that he would meet nurses in the [facility] if they were to bring his meal there. He appears to tolerate his psychotropic medications. MENTAL STATUS: Patient was lying in bed. He was awake. He gave fairly good eye contact and in fact had a staring gaze more than not. He had a tense manner. He only responded with 1 or 2 word answers to a few questions. Mostly he said he did not want to get out of bed and did want to go to the dining room. He was reluctant to take medications, though seem to accept that he would take medications. His mood was depressed. He was significantly distressed. He continues with severe thought disorder with at least paranoia. Whether he is experiencing hallucinations it is not so clear given the degree which he keeps himself closed off from staff. I was not able to assess for thoughts of harm. ASSESSMENT: I will continue the current diagnosis, though I feel his history is consistent with a diagnosis of schizophrenia. I will continue the patient on Invega 6 mg twice a day and along with that, give the patient Haldol 5 mg twice a day. The reason for adding Haldol is because he has had persistent psychosis that is only showing minimal response at best to the Invega. I did review with mother that it would be reasonable to continue Haldol and that we would watch closely for any potential side effects or problems. The mother said she will be coming in tomorrow to visit so she will be able to further assess how he is doing. She says that she has had some conversations on the telephone with him where he does seem to be able to converse much better than he does with staff. I suggested to mother that if he can be stabilized on his current medications and switched to a long-acting injectable, the next step in treatment would be to give him a trial of clozapine that most likely would be for outpatient followup. We will continue to focus on stabilization and discharge planning. SHIRLENE / GAURAV: [id number] /
[2019-10-12] MEDS: PALIPERIDONE 3 MG TAB.ER.24 PO SCH (20:02)
[2019-10-13] MEDS ORDERED: SERTRALINE 50 MG TAB PO STA (10:13)
[2019-10-13] MEDS ORDERED: SERTRALINE 100 MG TAB PO STA (11:13)
[2019-10-13] MEDS ORDERED: PALIPERIDONE 3 MG TAB.ER.24 PO STA (11:13)
[2019-10-13] MEDS: PALIPERIDONE 6 MG TAB.ER.24 PO SCH (11:14)
[2019-10-13] MEDS: SERTRALINE 100 MG TAB PO SCH (11:15)
[2019-10-13] MEDS: haloperidoL 5 MG TAB PO SCH (11:16)
--- NOTE | 2019-10-13 11:18 | P.PN ---
Progress Note - Text Progress Note Date: 10/13/19 Interval History: Patient was seen laying down in his bed this morning and refused to get out of his room however was agreeable to speak to assembly instructions writer. Patient appeared to be just waking up from sleep. Patient appears to be less anxious however continues to endorse paranoia about other people on the unit and not trusting them. He also states that he did not eat today and had a full cup of water beside him. He claims that he would eat but not in the dining all with others and was asking assembly instructions writer to bring him a tray of food. He continues to ask about discharge and has poor insight into his condition. He states that he has been taking his medications. He denies any depression today or any anxiety. He continues to be needy and demanding however this has been mildly improving. He did not report any side effects today. He states he has improving appetite today. He claims that he went to a group yesterday for a small amount of time and then left. At this time patient denies any suicidal or homical ideations, intent or plan. Patient denies any auditory, visual hallucinations. Mental Status Exam: General Appearance: Patient appears to be stated age is alert, anxious/paranoid, uncooperative today and difficult to redirect.. Patient appears to have fair hygiene and grooming wearing hospital gown Behavior: Patient is calmly lying in bed without any agitated behavior. Anxious/paranoid, mildly improving Speech: Patient's speech is fluent and nonpressured. Demanding and needy Mood/Affect: Patient reports their mood is "fine", affect is incongruent and appears to be anxious, mildly improving Suicidality/Homicidality: Patient denies having any suicidal or homicidal ideation intent or plan. Perceptions: Patient denies any visual hallucinations and denies any auditory hallucinations Though content/process: Patient is perseverating on attention, neediness and focused on his medications and attention. paranoia about others on the unit. Memory and concentration: AOX3, improving attention span Judgment and insight: poor, improving mildly Assessment: Schizoaffective disorder Generalized anxiety disorder Plan: -Patient continues to meet criteria for inpatient psychiatric admission for symptom stabilization and safety. Patient had court hearing on 10/06/2019 and was placed on a court order. Will await the court order from the courts. -Medications: Decreased paliperidone by mouth 3 BID for psychosis/mood stabilization with a plan to cross titrate with Haldol. Haldol IM if patient refuses by mouth. Increased haloperidol liquid to 4 mg 3 times a day for psychosis/paranoia. Continue with trazodone 50 mg daily at bedtime when necessary for insomnia. Increased Zoloft 150 mg daily for mood/anxiety -When necessary Ativan and Geodon for agitation/aggression. -NRT -not needed as patient does not smoke. -SW on board for discharge planning. Encouraged the patient to participate in milieu. We'll continue to work with patient and evaluate for improvement psychiatrically to prepare for discharge.
[2019-10-13] MEDS: HALOPERIDOL ORAL SOLN 10 MG/5 ML CUP PO SCH ×3 (11:24→23:10)
[2019-10-13] MEDS: PALIPERIDONE 3 MG TAB.ER.24 PO SCH (21:46)
--- NOTE | 2019-10-14 09:33 | P.PN ---
Progress Note - Text Progress Note Date: 10/14/19 Interval History: Patient was seen laying down in his bed this morning and refused to get out of his room again today and wanted to speak to administrative underwriter at his bedside. Patient today appeared to be getting up from his sleep. He states that he did was not able to get up out of bed for his breakfast however states that he'll be eating lunch later on. Patient continues to not be able to verbalize why he does not want to leave his room. Patient appeared to be more constricted in his affect today and appeared to be less anxious. He states that he feels his thoughts are "getting better" however was not able to elaborate more on this. He denied any depression or any anxiety at this time. He continues to ask about discharge and has poor insight into his condition. He states that he has been taking his medications, patient appeared to be less needy/demanding today. He did not report any side effects today. He states he has improving appetite today. At this time patient denies any suicidal or homical ideations, intent or plan. Patient denies any auditory, visual hallucinations. Mental Status Exam: General Appearance: Patient appears to be stated age is alert, anxious/paranoid, uncooperative today, improving mildly. Patient appears to have fair hygiene and grooming wearing hospital gown Behavior: Patient is calmly lying in bed without any agitated behavior. Anxious/paranoid, mildly improving Speech: Patient's speech is fluent and nonpressured. Monotone Mood/Affect: Patient reports their mood is "better", affect is incongruent and appears to be anxious, mildly improving Suicidality/Homicidality: Patient denies having any suicidal or homicidal ideation intent or plan. Perceptions: Patient denies any visual hallucinations and denies any auditory hallucinations Though content/process: Patient is logical, concrete and has poverty of content. He is not endorsing delusions at this time. Paranoia improving mildly. Memory and concentration: AOX3, improving attention span Judgment and insight: poor, improving mildly Assessment: Schizoaffective disorder Generalized anxiety disorder Plan: -Patient continues to meet criteria for inpatient psychiatric admission for symptom stabilization and safety. Patient had court hearing on 10/06/2019 and was placed on a court order. Will await the court order from the courts. -Medications: Discontinued paliperidone. Haldol IM if patient refuses by mouth. Changed haloperidol liquid to 5 mg bid for psychosis/paranoia. Continue with trazodone 50 mg daily at bedtime when necessary for insomnia. Continue with Zoloft 150 mg daily for mood/anxiety. We'll add Cogentin 0.5 mg twice a day for EPS prophylaxis. -When necessary Ativan and Geodon for agitation/aggression. -NRT -not needed as patient does not smoke. -SW on board for discharge planning. Encouraged the patient to participate in milieu. We'll continue to work with patient and evaluate for improvement psychiatrically to prepare for discharge.
[2019-10-14 10:27] LABS: Basophils # (A) 0.1 k/uL (0-0.2); Basophils % (A) 1 %; Eosinophils # (A) 0.1 k/uL (0-0.7); Eosinophils % (A) 2 %; HCT 42.1 % (39.0-53.0); HGB 14.5 gm/dL (13.0-17.5); Lymphocytes # (A) 2.2 k/uL (1.0-4.8); Lymphocytes % (A) 39 %; MCHC 34.5 g/dL (31.0-37.0); MCV 81.1 fL (80.0-100.0); Mean Platelet Volume 8.3; Monocytes # (A) 0.4 k/uL (0-1.0); Monocytes % (A) 6 %; Neutrophils # (A) 2.7 k/uL (1.3-7.7); Neutrophils % (A) 48 %; Platelet Count 192 k/uL (150-450); RDW 13.5 % (11.5-15.5); WBC 5.7 k/uL (3.8-10.6)
[2019-10-14 10:41] LABS: African American GFR (CKD) >90 (>60 ml/min/1.73 sqM); Anion Gap 7 mmol/L; Blood Urea Nitrogen 11 mg/dL (9-20); Calcium 9.1 mg/dL (8.4-10.2); Carbon Dioxide 30 mmol/L (22-30); Chloride 101 mmol/L (98-107); Glucose 94 mg/dL (74-99); Non-African American GFR(CKD) >90 (>60 ml/min/1.73 sqM); Potassium 3.9 mmol/L (3.5-5.1); Sodium 138 mmol/L (137-145)
[2019-10-14] MEDS: SERTRALINE 100 MG TAB PO SCH (10:49)
[2019-10-14] MEDS: HALOPERIDOL ORAL SOLN 10 MG/5 ML CUP PO SCH ×3 (10:50→20:11)
[2019-10-14] MEDS: BENZTROPINE MESYLATE 0.5 MG TAB PO SCH ×2 (10:50→20:11)
[2019-10-14] MEDS: PALIPERIDONE 3 MG TAB.ER.24 PO SCH (10:51)
[2019-10-15] MEDS: HALOPERIDOL ORAL SOLN 10 MG/5 ML CUP PO SCH ×2 (08:19→21:37)
[2019-10-15] MEDS: SERTRALINE 100 MG TAB PO SCH (08:19)
[2019-10-15] MEDS: BENZTROPINE MESYLATE 0.5 MG TAB PO SCH ×2 (08:19→21:38)
--- NOTE | 2019-10-15 09:48 | P.PN ---
Progress Note - Text Progress Note Date: 10/15/19 Interval History: Patient was seen wandering the hallways this morning after taking his medication and was agreeable to seek the senior medical writer in the office. Patient claims that he is feeling better today overall. He states that his anxiety and depression have been mildly improving. He claims that he was able to sleep better last night. He states that he did eat breakfast this morning however went to the dining [facility] and took his tray and eat it in the lounge. When asked why he was not able to eat in the dining ed[facility] he states that "I just don't like a lot of people that's all". Patient appeared to be less needy today and less demanding however did ask about discharge. He states that he was able to talk to his mom over the phone yesterday. Patient continues to be concrete in her poverty of content. He did not report any side effects today. He states he has improving appetite today. At this time patient denies any suicidal or homical ideations, intent or plan. Patient denies any auditory, visual hallucinations. Mental Status Exam: General Appearance: Patient appears to be stated age is alert, less anxious/paranoid, more cooperative today. Patient appears to have fair hygiene and grooming wearing hospital gown Behavior: Patient is calmly lying in bed without any agitated behavior. Less paranoid today. Speech: Patient's speech is fluent and nonpressured. Monotone Mood/Affect: Patient reports their mood is "good", affect is incongruent and appears to be anxious, mildly improving Suicidality/Homicidality: Patient denies having any suicidal or homicidal ideation intent or plan. Perceptions: Patient denies any visual hallucinations and denies any auditory hallucinations Though content/process: Patient is logical, concrete and has poverty of content. He is not endorsing delusions at this time. Paranoia improving mildly. Memory and concentration: AOX3, improving attention span Judgment and insight: poor, improving mildly Assessment: Schizoaffective disorder Generalized anxiety disorder Plan: -Patient continues to meet criteria for inpatient psychiatric admission for symptom stabilization and safety. Patient had court hearing on 10/06/2019 and was placed on a court order. Will await the court order from the courts. -Medications: Haldol IM if patient refuses by mouth. Continue with haloperidol liquid to 5 mg bid for psychosis/paranoia. Continue with trazodone 50 mg daily at bedtime when necessary for insomnia. Continue with Zoloft 150 mg daily for mood/anxiety. Continue with Cogentin 0.5 mg twice a day for EPS prophylaxis. Will need to transition patient onto Haldol D prior to discharge to ensure compliance. -When necessary Ativan and Geodon for agitation/aggression. -NRT -not needed as patient does not smoke. -SW on board for discharge planning. Encouraged the patient to participate in milieu. We'll continue to work with patient and evaluate for improvement psychiatrically to prepare for discharge. Likely discharge next week after patient is transitioned onto Haldol [place].
[2019-10-16] MEDS: HALOPERIDOL ORAL SOLN 10 MG/5 ML CUP PO SCH ×2 (07:55→21:53)
[2019-10-16] MEDS: BENZTROPINE MESYLATE 0.5 MG TAB PO SCH ×2 (07:56→21:54)
[2019-10-16] MEDS: SERTRALINE 100 MG TAB PO SCH (07:56)
--- NOTE | 2019-10-16 12:55 | P.PN ---
Subjective Progress Note Date: 10/16/19 Principal diagnosis: Schizoaffective disorder And JEANNETTE Subjective he says the medicine has been helping as she that Haldol. And he has not is anxious as before Objective: The patient is on Haldol 5 mg twice a day also Zoloft 150 in the morning Cogentin 0.5 twice a day for EPS and trazodone 50 at night the patient says that he is sleeping well. He is recorded to slept 7 hours last night Groups he is so anxious he has not been going to groups I told they going to groups would be an excellent sign of his doing better if he could Staff report patient is anxious as patient poor self-care has to be encouraged to take a shower speaks in a monotonous flat voice suspicious withdrawn and paranoid vague no energy seems to be responding to voices however is oriented to person place time and circumstances withdrawn from peers and staff denies suicidality or homicidality Mental status exam: Gen. appearance minimal self-care The patient has been very pressured in the past wanting to talk to me even though I'm not is DrDiandra and asking every time at walk by in the [facility] care just 1 minute. He was not nearly as pressured today and I think the medicine is beginning to work. His affect is still tense eye contact is good gait and station are normal psychomotor activity is not increased no signs of responding to voices as I talked and he denied any suicidality or homicidality he's always been almost ingratiatingly positive Assessment he is improving plan no change in medication he does need to continue hospitalization for medication adjustment and safety Objective - Vital Signs Vital signs: Vital Signs Temp 98.8 F 10/16/19 06:33 Pulse 66 10/16/19 06:33 Resp 14 10/16/19 06:33 BP 95/56 10/16/19 06:33 Pulse Ox 98 10/15/19 06:43 - Labs CBC & Chem 7: 10/14/19 09:38 10/14/19 09:38
[2019-10-17] MEDS: SERTRALINE 100 MG TAB PO SCH (07:44)
[2019-10-17] MEDS: HALOPERIDOL ORAL SOLN 10 MG/5 ML CUP PO SCH ×2 (07:44→21:17)
[2019-10-17] MEDS: BENZTROPINE MESYLATE 0.5 MG TAB PO SCH ×2 (07:44→21:19)
--- NOTE | 2019-10-17 08:03 | P.PN ---
Subjective Progress Note Date: 10/17/19 Principal diagnosis: Schizoaffective disorder And JEANNETTE Subjective: He is looking forward to possible discharge early next week and says that the medicine is helping his anxiety that he slept well and is eating okay Objective: Patient has a slightly tense affect but not as much as in the past and he is not intrusive always been pleasant and cooperative no signs of psychosis good eye contact somewhat decreased psychomotor activity Vital signs temperature 98.6 heart rate 69 respiration 14 blood pressure 106/57 Labs: Nothing since the and that looked good Medications he has not been needing when necessary's are trazodone for sleep he takes Haldol 5 mg twice a day along with Cogentin 0.5 twice a day Groups the patient is still not able to attend Staff report: Patient still needs reminders to do ADLs still comes across withdrawn low energy isolates from peers and staff Assessment patient is slowly improving Plan: no change in medication Objective - Vital Signs Vital signs: Vital Signs Temp 98.6 F 10/17/19 06:15 Pulse 69 10/17/19 06:15 Resp 14 10/17/19 06:15 BP 106/57 10/17/19 06:15 Pulse Ox 98 10/15/19 06:43 - Labs CBC & Chem 7: 10/14/19 09:38 10/14/19 09:38
[2019-10-18] MEDS: BENZTROPINE MESYLATE 0.5 MG TAB PO SCH ×2 (08:08→19:57)
[2019-10-18] MEDS: HALOPERIDOL ORAL SOLN 10 MG/5 ML CUP PO SCH ×2 (08:09→19:57)
[2019-10-18] MEDS: SERTRALINE 100 MG TAB PO SCH (08:09)
[2019-10-18] MEDS ORDERED: HALOPERIDOL DECANOATE 100 MG/ML 1 ML VIAL IM STA (09:14)
--- NOTE | 2019-10-18 10:22 | P.PN ---
Progress Note - Text Progress Note Date: 10/18/19 Interval History: Patient was seen wandering the hallways this morning after taking his medication and was agreeable to seek the junior copywriter in the office. patient appeared to be less anxious today and more calm and cooperative with junior copywriter. She stated immediately that "I think the Haldol is helping me". He states that he is feeling less paranoid today and was able to leave his room throughout the weekend to go eat in the dining [facility] with others. Patient continues to be preoccupied with discharge and asked for junior copywriter to call his mother over the phone to speak with her. Patients mother was called and given an update on patient's current status will also states that she feels that patient has been doing better on the medication. He states that his anxiety and depression have been improving. He claims that he was able to sleep better last night and denied any overnight complaints. He states that he did eat breakfast this morning. he continues to state that he has not been going to groups. Patient appeared to be less needy today. He did not report any side effects today. He states he has improving appetite today. At this time patient denies any suicidal or homical ideations, intent or plan. Patient denies any auditory, visual hallucinations. patient claims that he is agreeable to take the Haldol D injection today. Mental Status Exam: General Appearance: Patient appears to be stated age is alert, less anxious/paranoid, more cooperative today. Patient appears to have fair hygiene and grooming wearing hospital gown Behavior: Patient is calmly lying in bed without any agitated behavior. Less paranoid today. Speech: Patient's speech is fluent and nonpressured. Mood/Affect: Patient reports their mood is "better", affect is incongruent and appears to be less anxious today. Suicidality/Homicidality: Patient denies having any suicidal or homicidal ideation intent or plan. Perceptions: Patient denies any visual hallucinations and denies any auditory hallucinations Though content/process: Patient is logical, concrete and has poverty of content. He is not endorsing delusions at this time. Paranoia improving. Memory and concentration: AOX3, improving attention span Judgment and insight: poor, improving mildly Assessment: Schizoaffective disorder Generalized anxiety disorder Plan: -Patient continues to meet criteria for inpatient psychiatric admission for symptom stabilization and safety. Patient had court hearing on 10/06/2019 and was placed on a court order. Will await the court order from the courts. -Medications: Haldol IM if patient refuses by mouth. we will decrease haloperidol liquid to 3 mg bid for psychosis/paranoia. patient to receive Haldol D 100 mg IM today. Continue with trazodone 50 mg daily at bedtime when necessary for insomnia. Increased Zoloft 200 mg daily for mood/anxiety. Continue with Cogentin 0.5 mg twice a day for EPS prophylaxis. -When necessary Ativan and Geodon for agitation/aggression. -NRT -not needed as patient does not smoke. -SW on board for discharge planning. Encouraged the patient to participate in milieu. We'll continue to work with patient and evaluate for improvement psychiatrically to prepare for discharge. updated patient's mother on patient's condition today over the phone. We'll continue to observe patient's progress and behaviors and likely discharge in 2-3 days.
[2019-10-19 05:39] VITALS: RESP 16
[2019-10-19] MEDS: HALOPERIDOL ORAL SOLN 10 MG/5 ML CUP PO SCH ×2 (09:35→20:49)
[2019-10-19] MEDS: BENZTROPINE MESYLATE 0.5 MG TAB PO SCH ×2 (09:38→20:49)
[2019-10-19] MEDS: SERTRALINE 100 MG TAB PO SCH (09:38)
[2019-10-19] MEDS: hydrOXYzine pamoate 25 MG CAP PO SCH ×2 (09:47→20:49)
--- NOTE | 2019-10-19 10:00 | P.PN ---
Progress Note - Text Progress Note Date: 10/19/19 Interval History: Patient was seen laying down in his bed this morning and was agreeable to seek the grant writer in the office. patient appeared to be anxious today during conversation however was attempting to cooperate as best as he can. Patient continues to speak about discharge however claims that "I'm worried about going back home because [facility] Patient went on to speak about gunshots and potential harm around his house and home environment. He was endorsing mild paranoia today about others on the unit however states that he was able to eat his breakfast in the dining [facility]. He claims that he trusts grant writer with his medications. He also states that he spoke with his mother this morning "mainly about what I ate for breakfast". He states that his depression have been improving. He claims that he was able to sleep better last night and denied any overnight complaints. he continues to state that he has not been going to groups. He did not report any side effects today. He states he has improving appetite today. At this time patient denies any suicidal or homical ideations, intent or plan. Patient denies any auditory, visual hallucinations. Patient claims that he tolerated the Haldol D injection while yesterday. Mental Status Exam: General Appearance: Patient appears to be stated age is alert, anxious/paranoid today, attempts to be cooperative today. Patient appears to have fair hygiene and grooming wearing hospital gown Behavior: Patient is calmly lying in bed without any agitated behavior. Mildly paranoid today. Speech: Patient's speech is fluent and nonpressured. Mood/Affect: Patient reports their mood is "ok", affect is incongruent and appea rs to be anxious today. Suicidality/Homicidality: Patient denies having any suicidal or homicidal ideation intent or plan. Perceptions: Patient denies any visual hallucinations and denies any auditory hallucinations Though content/process: Patient is logical, concrete and has poverty of content. He is not endorsing delusions at this time. Paranoia improving. Memory and concentration: AOX3, improving attention span Judgment and insight: poor, improving mildly Assessment: Schizoaffective disorder Generalized anxiety disorder Plan: -Patient continues to meet criteria for inpatient psychiatric admission for symptom stabilization and safety. Patient had court hearing on 10/06/2019 and was placed on a court order. Will await the court order from the courts. -Medications: Haldol IM if patient refuses by mouth. we will continue with haloperidol liquid to 3 mg bid for psychosis/paranoia. Patient received Haldol D 100 mg IM on 10/18/2019, may need an extra 50 mg dose tomorrow or the day a fter. Continue with trazodone 50 mg daily at bedtime when necessary for insomnia. Continue with Zoloft 200 mg daily for mood/anxiety. Continue with Cogentin 0.5 mg twice a day for EPS prophylaxis. Added Vistaril 25 mg twice a day for anxiety. -When necessary Ativan and Geodon for agitation/aggression. -NRT -not needed as patient does not smoke. -SW on board for discharge planning. Encouraged the patient to participate in milieu. We'll continue to work with patient and evaluate for improvement psychiatrically to prepare for discharge. We'll continue to observe patient's progress and behaviors and likely discharge later on this week back home.
[2019-10-20 07:07] VITALS: BP 108/59; PULSE 65; TEMP 97.6
[2019-10-20] MEDS: hydrOXYzine pamoate 25 MG CAP PO SCH (09:49)
[2019-10-20] MEDS: BENZTROPINE MESYLATE 0.5 MG TAB PO SCH ×2 (09:49→20:22)
[2019-10-20] MEDS: SERTRALINE 100 MG TAB PO SCH (09:49)
[2019-10-20] MEDS ORDERED: HALOPERIDOL DECANOATE 50 MG/ML 1 ML VIAL IM STA (10:01)
[2019-10-20] MEDS: busPIRone HCl 5 MG TAB PO SCH ×2 (10:06→20:22)
[2019-10-20] MEDS: HALOPERIDOL ORAL SOLN 10 MG/5 ML CUP PO SCH ×2 (10:09→20:23)
--- NOTE | 2019-10-20 10:25 | P.PN ---
Progress Note - Text Progress Note Date: 10/20/19 Interval History: Patient was seen laying down in his bed this morning and was agreeable to seek the senior copywriter in the office. patient appeared to be less anxious today during conversation. He was attempting to cooperate more with interviewer and with senior copywriter. Patient was more appropriate and however continues to ask about discharge. She states that he was able to go to 1 group yesterday and states that "I rolled the dice and answered questions". He claims that the group went well and he is continuing to endorse less paranoia at this time. He claims that he has less racing thoughts. He states that the Vistaril was making him feel dizzy and wanted to be discontinued off of it. Patient was agreeable to try BuSpar today for anxiety. He states that he is continuing to speak with his mother over the phone and updating her on his condition. He states that his depression have been improving. He claims that he was able to sleep better last night and denied any overnight complaints. He states he has improving appetite today and states that he was able to eat in the dining [place] with the other patients. At this time patient denies any suicidal or homical ideations, intent or plan. Patient denies any auditory, visual hallucinations. Mental Status Exam: General Appearance: Patient appears to be stated age is alert, less anxious/paranoid today, attempts to be cooperative. Patient appears to have fair hygiene and grooming wearing hospital gown Behavior: Patient is calmly lying in bed without any agitated behavior. Paranoia improving. Speech: Patient's speech is fluent and nonpressured. Mood/Affect: Patient reports their mood is "fine", affect is congruent and appears to be less anxious today. Suicidality/Homicidality: Patient denies having any suicidal or homicidal ideation intent or plan. Perceptions: Patient denies any visual hallucinations and denies any auditory de león llucinations Though content/process: Patient is logical, concrete and has poverty of content. He is not endorsing delusions at this time. Paranoia improving. Memory and concentration: AOX3, improving attention span Judgment and insight: poor, improving mildly Assessment: Schizoaffective disorder Generalized anxiety disorder Plan: -Patient continues to meet criteria for inpatient psychiatric admission for symptom stabilization and safety. Patient had court hearing on 10/06/2019 and was placed on a court order. -Medications: Haldol IM if patient refuses by mouth. we will continue decreasing haloperidol liquid to 2 mg bid for psychosis/paranoia. Patient received Haldol D 100 mg IM on 10/18/2019, and will receive another 50 mg dose today I am. Continue with trazodone 50 mg daily at bedtime when necessary for insomnia. Continue with Zoloft 200 mg daily for mood/anxiety. Continue with Cogentin 0.5 mg twice a day for EPS prophylaxis. Discontinued Vistaril and replaced with BuSpar 7.5 mg twice a day for anxiety and will consider titrating up as needed. -When necessary Ativan and Geodon for agitation/aggression. -NRT -not needed as patient does not smoke. -SW on board for discharge planning. Encouraged the patient to participate in milieu. We'll continue to work with patient and evaluate for improvement psychiatrically to prepare for discharge. We'll continue to observe patient's progress and behaviors and likely discharge later on this week back home, likely discharge in 2-3 days.
[2019-10-20 11:56] VITALS: BMI 21.1
[2019-10-21] MEDS: busPIRone HCl 5 MG TAB PO SCH (08:24)
[2019-10-21] MEDS: BENZTROPINE MESYLATE 0.5 MG TAB PO SCH (08:25)
[2019-10-21] MEDS: SERTRALINE 100 MG TAB PO SCH (08:25)
[2019-10-21] MEDS: HALOPERIDOL ORAL SOLN 10 MG/5 ML CUP PO SCH (08:25)
[2019-10-21] MEDS ORDERED: BENZTROPINE MESYLATE 0.5 MG TAB PO PRN (08:50)
--- NOTE | 2019-10-21 09:08 | P.PN ---
Progress Note - Text Progress Note Date: 10/21/19 Interval History: Patient was seen laying down in his bed this morning and was agreeable to seek the service writer advisor in the office. patient appeared to be less anxious today during conversation and appeared to have a brighter affect today. He was more appropriate and cooperative with service writer advisor today. He was asking about discharge if it would be possible today. He appears to be less paranoid and did not endorse any issues with any patients or staff members today. He states that he feels the medications are helping him "be clear in my mind". He states that he did not go to group yesterday however we'll try to go to group today. He claims that he has less racing thoughts. Patient states that he took the second dose of Haldol to yesterday. He states that he is continuing to speak with his mother over the phone and updating her on his condition and states that she would be willing to come pick him up tomorrow. He states that his depression have been improving. He claims that he was able to sleep better last night and denied any overnight complaints. He states he has improving appetite today and states that he was able to eat in the dining edward with the other patients. At this time patient denies any suicidal or homical ideations, intent or plan. Patient denies any auditory, visual hallucinations. Mental Status Exam: General Appearance: Patient appears to be stated age is alert, more directable today, attempts to be cooperative. Patient appears to have fair hygiene and grooming wearing hospital gown Behavior: Patient is calmly lying in bed without any agitated behavior. Paranoia improving. Speech: Patient's speech is fluent and nonpressured. Mood/Affect: Patient reports their mood is "good", affect is congruent and appears to be less anxious today. Suicidality/Homicidality: Patient denies having any suicidal or homicidal ideation intent or plan. Perceptions: Patient denies any visual hallucinations and denies any auditory hallucinations Though content/process: Patient is logical, concrete and has poverty of content. He is not endorsing delusions at this time. Memory and concentration: AOX3, improving attention span Judgment and insight: Chronically poor, improving mildly Assessment: Schizoaffective disorder Generalized anxiety disorder Plan: -Patient continues to meet criteria for inpatient psychiatric admission for symptom stabilization and safety. Patient had court hearing on 10/06/2019 and was placed on a court order. -Medications: Discontinued by mouth Haldol today. Patient received Haldol D 100 mg IM on 10/18/2019, and received another 50 mg dose on 10/20/2019. We will be due for his next 150 mg Haldol D injection on 11/08/2019 and this dose and frequency can be re-evaluated as an outpatient by his psychiatrist. Continue with Zoloft 200 mg daily for mood/anxiety. Continue Cogentin 0.5 mg PRN twice a day for EPS prophylaxis. Increased BuSpar 10 mg twice a day for anxiety. -When necessary Ativan and Geodon for agitation/aggression. -NRT -not needed as patient does not smoke. -SW on board for discharge planning. Encouraged the patient to participate in milieu. Patient will meet need to be set up at [facility] for intake upon discharge. Patient will be due for his next long-acting injection in 3 weeks. likely discharge tomorrow.
[2019-10-21] MEDS: busPIRone HCl 10 MG TAB PO SCH ×2 (09:46→20:05)
[2019-10-22] MEDS: SERTRALINE 100 MG TAB PO SCH (08:54)
[2019-10-22] MEDS: busPIRone HCl 10 MG TAB PO SCH (08:54)
[2019-10-22] MEDS ORDERED: BENZTROPINE MESYLATE 1 MG TAB PO PRN (09:32)
--- NOTE | 2019-10-22 10:33 | P.DS ---
Providers Date of admission: 10/02/19 18:04 Expected date of discharge: 10/22/19 Attending physician: Andrew Seaman MD Consults: 10/02/19 18:16 Consult Physician Routine Consulting Provider: Tiffani Hoover Consult Reason/Comments: medical management Do you want consulting provider notified?: Already Contacted Primary care physician: Stated None - Discharge Diagnosis(es) (1) Schizoaffective disorder Current Visit: Yes Status: Acute Priority: High (2) Generalized anxiety disorder Current Visit: Yes Status: Acute Priority: Medium Hospital Course: Admission HPI: A 33-year-old single male who currently lives with his mother and has a history of PTSD anxiety and paranoia. Patient was initially discharged on 09/17/2019 with diagnoses of unspecified psychosis and generalized anxiety disorder. His discharge medications included Abilify 10 mg daily. The patient stated that he became increasingly anxious when he returned to his parent's home. He talked about developing a belief that people were watching him and trying to "get him." He believed that people were hiding in the [place] around his parents home. He then spent 2 or 3 days at his grandmother's house believing that anxiety and paranoia was due to living at his parent's home. However the anxiety and paranoia continued and worsened to the point where she became afraid to eat or drink fluids. He developed a belief that both the water and food were poisoned. He alleged that he has not eaten and only drank "a little bit" of water since his discharge. Patient was admitted once again to the mental health unit for psychosis/paranoia along with anxiety and was restarted on his Abilify by mouth. Patient was noted to be withdrawn on the unit and uncooperative and also having a lack of appetite. Patient remained in a position and refused to get out of bed for almost 3 days while he was on the mental health unit and was not taking his medications. Patient was seen by candy cutter machine who ordered a chest x-ray which showed pneumomediastinum and subcutaneous emphysema. Patient had a computed tomography scan of his chest which showed confirmation of pneumomediastinum and did not show any pneumothorax or displaced fractures. Patient had a barium swallow evaluation on the medical floors which did not show an esophageal leak. Patient was treated with antibiotics as patient had SIRS and patient gradually recovered with hydration on the medical floors and was then transferred back to the mental health unit on 10/02/2019. Patient was seen in his room today by news writer and refused to leave his room today. Patient appeared to be needy and demanding more attention from news writer and nurses. He continues to have poor insight into his medications and was demanding discharge. He states that he has been taking his Abilify for his anxiety and endorses significant paranoia at this time. Patient claims that he does not want to sign the release of information to speak with his mother because "my paranoia is bad". He claims that his mood is "fine" and admits to poor sleep. He denied any suicidal or homicidal ideations intent or plan and denied any auditory or visual hallucinations. Hospital course: Upon admission to the unit patient was initially paranoid, anxious and experiencing auditory hallucinations. Patient was initially difficult to redirect and was very needy/demanding and isolative in his room secondary to paranoia. Patient was found to be agreeable to take his medications however was not improving psychiatrically and was checked for cheeking his medications. Patient ended up admitting that he had been cheeking his medications and not taking them. Treatment team ended up filing for demand for hearing due to patient's noncompliance with medications and poor insight and a treatment order was issued on 10/06/2019. Patient's medications were switched from Abilify to Invega to Haldol liquid eventually throughout the course of his hospitalization. Patient gradually progressed with treatment and ended up coming out of his room more and interacting with other people, going to group and eating in the dining edward. Patient's paranoia had improved significantly along with patient's anxiety. He denied any side effects throughout hospital course. Patient was started on Haldol liquid and titrated up to a dose of 5 mg twice a day for psychosis and eventually transitioned onto a total dose of Haldol D1 150 mg IM which the first 100 mg dose was given on 10/17 and the next 50 mg dose was given on 10/19. Patient will be due for his next Haldol D injection on 11/08/2019 and Q21 days thereafter. Patient was also started on Zoloft and titrated up to dose of 200 mg daily for mood/anxiety. Patient was also started on BuSpar and titrated up to a dose of 50 mg twice a day for anxiety. Cogentin was also added for EPS prophylaxis. Patient spoke of his stressors and engaged in therapy both group and individual. Patient was also seen by medical team for history and physical exam. Patient had to repeat chest x-rays, the first one on 10/04/2023 patient's pneumomediastinum which showed a persistent meet pneumomediastinum and subcutaneous emphysema which mildly decreased from previous study. Patient had a second chest x-ray completed on 10/10 for chest pain and showed no acute cardiopulmonary process. Throughout the course of the hospitalization patient gradually improved with regards to mood, anxiety, psychosis, paranoia, sleep and became future oriented with improved insight and judgment. On the day of discharge patient denied any suicidal or homicidal ideations intent or plan denied any auditory or visual hallucinations. Patient endorsed wanting to live for his future and family. The patient denied any access to guns or weapons. P atient denied any paranoia and did not endorse any delusions. Patient does not have a significant history of substance abuse however was counseled on abstaining from all substances including alcohol and marijuana. Patient was also counseled on the medications and need for regular compliance and was encouraged to follow-up with their outpatient appointment for mental health and also for primary care. Prior to discharge a family meeting will be arranged by social science teacher to answer any questions and ensure safety upon discharge. Patient's mother was also called regularly throughout the course of patient's hospitalization by news writer to update her on treatment, goals and address any concerns or questions and speak about discharge planning. Mental status exam: General Appearance: Patient appears to be stated age is thin, alert, directable, and cooperative. Patient is in no acute distress and has fair hygiene and grooming Behavior: Patient is calmly seated without any agitated behavior. Cooperative. Speech: Patient's speech is fluent and nonpressured. Mood/Affect: Patient reports their mood is "better", affect is congruent and constricted. Suicidality/Homicidality: Patient denies having any suicidal or homicidal ideation intent or plan. Perceptions: Patient denies any auditory or visual hallucinations. Though content/process: There is no evidence of any delusional thought content and thought process is linear and goal-directed. Memory and concentration: AOX3, grossly intact for the purposes of this session. Can spell "WORLD" backwards correctly. Judgment and insight: Chronically Limited, Improved with guarded prognosis Impression: Schizoaffective disorder. Generalized anxiety disorder Plan: -Continue with discharge today as patient has improved and stabilized psy chiatrically and is not currently an imminent threat to himself and/or others. Patient will remain at chronically elevated risk for harm to self and/or others due to his limited insight and severe mental illness/symptoms. -Patient is on a active treatment order starting on 10/06/2019. -Continue medications: Patient was titrated off of Haldol by mouth and transition onto Haldol D long acting injection to ensure compliance. Patient received a total of 150 mg IM of Haldol D and will be due for his next dose of 150 mg IM on 11/08/2019 and every 3 weeks thereafter. The dose and frequency of long acting injection can be reevaluated as an outpatient by a psychiatrist. Continue with BuSpar 15 mg twice a day for anxiety, Cogentin 1 mg when necessary daily for EPS prophylaxis and Zoloft 200 mg daily for mood/anxiety -Patient was counseled on the need for medication compliance and appropriate follow-up at mental health and also primary care for medical issues. Patient verbalized understanding and agreed. -Social work to arrange for and conduct family meeting to ensure safety upon discharge and answer any questions/concerns. Instantizer Operator had spoke with patient's mother over the phone several times, see above for further details to address questions about discharge and treatment going forward. Social work also to arrange for patients follow up appointments with [facility] for psychiatric care along with follow up with primary care provider. -Patient counseled on abstaining from recreational drugs and marijuana and alcohol. Was informed/educated on the adverse effects on their physical and mental health. Patient verbally agreed and understood. -Patient was instructed to return to the hospital or seek immediate medical care if their psychiatric or medical symptoms do worsen or reoccur. Allergies Allergy/AdvReac Type Severity Reaction Status Date / Time shelfish AdvReac Swelling Uncoded 09/25/19 05:48 Laboratory Results WBC 5.7 k/uL (3.8-10.6) 10/14/19 09:38 RBC 5.20 m/uL (4.30-5.90) 10/14/19 09:38 Hgb 14.5 gm/dL (13.0-17.5) 10/14/19 09:38 Hct 42.1 % (39.0-53.0) 10/14/19 09:38 MCV 81.1 fL (80.0-100.0) 10/14/19 09:38 MCH 28.0 pg (25.0-35.0) 10/14/19 09:38 MCHC 34.5 g/dL (31.0-37.0) 10/14/19 09:38 RDW 13.5 % (11.5-15.5) 10/14/19 09:38 Plt Count 192 k/uL (150-450) 10/14/19 09:38 Neutrophils % 48 % 10/14/19 09:38 Lymphocytes % 39 % 10/14/19 09:38 Monocytes % 6 % 10/14/19 09:38 Eosinophils % 2 % 10/14/19 09:38 Basophils % 1 % 10/14/19 09:38 Neutrophils # 2.7 k/uL (1.3-7.7) 10/14/19 09:38 Lymphocytes # 2.2 k/uL (1.0-4.8) 10/14/19 09:38 Monocytes # 0.4 k/uL (0-1.0) 10/14/19 09:38 Eosinophils # 0.1 k/uL (0-0.7) 10/14/19 09:38 Basophils # 0.1 k/uL (0-0.2) 10/14/19 09:38 Sodium 138 mmol/L (137-145) 10/14/19 09:38 Potassium 3.9 mmol/L (3.5-5.1) 10/14/19 09:38 Chloride 101 mmol/L (98-107) 10/14/19 09:38 Carbon Dioxide 30 mmol/L (22-30) 10/14/19 09:38 Anion Gap 7 mmol/L 10/14/19 09:38 BUN 11 mg/dL (9-20) 10/14/19 09:38 Creatinine 0.80 mg/dL (0.66-1.25) 10/14/19 09:38 Est GFR (CKD-EPI)AfAm >90 (>60 ml/min/1.73 sqM) 10/14/19 09:38 Est GFR (CKD-EPI)NonAf >90 (>60 ml/min/1.73 sqM) 10/14/19 09:38 Glucose 94 mg/dL (74-99) 10/14/19 09:[address] Glu mg/dL 88 09/30/19 07:08 Hemoglobin A1c 4.7 % (4.0-6.0) 09/30/19 07:08 Calcium 9.1 mg/dL (8.4-10.2) 10/14/19 09:38 Total Bilirubin 0.9 mg/dL (0.2-1.3) 10/10/19 08:49 AST 17 U/L (17-59) 10/10/19 08:49 ALT 10 U/L (4-49) 10/10/19 08:49 Alkaline Phosphatase 65 U/L (38-126) 10/10/19 08:49 Creatine Kinase 46 U/L (55-170) L 10/10/19 08:49 Total Protein 6.3 g/dL (6.3-8.2) 10/10/19 08:49 Albumin 4.1 g/dL (3.5-5.0) 10/10/19 08:49 Triglycerides 79 mg/dL (<150) 09/30/19 07:08 Cholesterol 129 mg/dL (<200) 09/30/19 07:08 LDL Cholesterol, Calc 87 mg/dL (0-99) 09/30/19 07:08 HDL Cholesterol 26 mg/dL (40-60) L 09/30/19 07:08 Vital Signs Temp 97.6 F 10/20/19 06:49 Pulse 65 10/20/19 06:49 Resp 16 10/20/19 06:49 BP 108/59 10/20/19 06:49 Pulse Ox 97 10/19/19 05:38 Patient Condition at Discharge: Stable Plan - Discharge Summary New Discharge Prescriptions: New busPIRone HCL [Buspar] 15 mg PO BID 30 Days tab Benztropine Mesylate [Cogentin] 1 mg PO DAILY PRN 30 Days tablet PRN Reason: for muscle spasms/tightness Haloperidol Decanoate [Haldol D] 150 mg IM Q21D #1 vial Acetaminophen Tab [Tylenol] 650 mg PO Q4HR PRN tab PRN Reason: Mild Pain/Discomfort Sertraline [Zoloft] 200 mg PO DAILY 30 Days tab Discontinued ARIPiprazole [Abilify] 10 mg PO DAILY 30 Days tab Acetaminophen Tab [Tylenol] 650 mg PO Q4HR PRN tab PRN Reason: Pain/Discomfort LORazepam [Ativan] 0.5 mg PO BID 3 Days #6 tab Discharge Medication List Acetaminophen Tab [Tylenol] 650 mg PO Q4HR PRN tab 10/22/19 [Rx] Benztropine Mesylate [Cogentin] 1 mg PO DAILY PRN 30 Days tablet 10/22/19 [Rx] Haloperidol Decanoate [Haldol D] 150 mg IM Q21D #1 vial 10/22/19 [Rx] Sertraline [Zoloft] 200 mg PO DAILY 30 Days tab 10/22/19 [Rx] busPIRone HCL [Buspar] 15 mg PO BID 30 Days tab 10/22/19 [Rx] Follow up Appointment(s)/Referral(s): [facility] [Outside] - 10/26/19 10:00 am ( 10-26-19 @ 10:00 with Rashaun Baltazar at [facility] 10-29-19 @ 1:[address] Byrd at [facility]) [facility]] - 1 Week Patient Instructions/Handouts: Schizoaffective Disorder (DC), Generalized Anxiety Disorder (GEN), Suicide Prevention (DC) Activity/Diet/Wound Care/Special Instructions: Activity and diet as tolerated. Avoid the use of street drugs and alcohol. Take all medications as prescribed. When you are in need of refills on your medications please contact your medical provider and/or outpatient psychiatrist to have this done. Please go to scheduled outpatient appointment for aftercare treatment. If symptoms return or become worse, call the crisis line at and/or go to the nearest emergency room for evaluation. Discharge Disposition: HOME SELF-CARE
[2019-10-22] MEDS ORDERED: busPIRone HCl 5 MG TAB PO SCH (21:00)
== END 2019-10-22 10:20 | disposition home or self-care (01) | DRG 885 ==
LOC: 3MHU 18:04
PROVIDERS: ADMIT Psychiatry & Neurology Psychiatry; ATTEND Psychiatry & Neurology Psychiatry
DX: F25.9 Schizoaffective disorder, unspecified (principal); F32.9 Major depressive disorder, single episode, unspecified; F41.1 Generalized anxiety disorder; F43.10 Post-traumatic stress disorder, unspecified; Z79.899 Other long term (current) drug therapy; Z91.14 Patient's other noncompliance with medication regimen; Z82.5 Family history of asthma and other chronic lower respiratory diseases; Z82.49 Family history of ischemic heart disease and other diseases of the circulatory system; R00.0 Tachycardia, unspecified; Z62.819 Personal history of unspecified abuse in childhood; G47.9 Sleep disorder, unspecified; Z91.013 Allergy to seafood
CPT/HCPCS: 71045; 71046; 80048; 80053; 80061; 82550; 83036; 85025